=== PATIENT | male | born 1975 | race Caucasian/White ===

== ENCOUNTER 2018-05-28 12:24 | Emergency (ER) | payer MEDICAID ==
[~2018-05-28] VITALS: Ht 172.7 cm; Wt 58.0 kg
[2018-05-28 12:54] VITALS: BP 120/82
[2018-05-28] MEDS ORDERED: CYCL-1 PO (14:44)
[2018-05-28] MEDS ORDERED: IBUP-1984 PO (14:44)
== END 2018-05-28 14:48 | disposition home or self-care (01) ==
LOC: ER 12:25
DX: S20.219A Contusion of unspecified front wall of thorax, initial encounter (principal); S00.01XA Abrasion of scalp, initial encounter; S09.90XA Unspecified injury of head, initial encounter; I10 Essential (primary) hypertension; F12.90 Cannabis use, unspecified, uncomplicated; Z98.890 Other specified postprocedural states; Z88.1 Allergy status to other antibiotic agents; V19.9XXA Pedal cyclist (driver) (passenger) injured in unspecified traffic accident, initial encounter; Y93.55 Activity, bike riding; Y92.413 State road as the place of occurrence of the external cause; Y99.9 Unspecified external cause status
CPT/HCPCS: 71046; 99284

== ENCOUNTER 2018-07-28 14:00 | Emergency (ER) | payer MEDICAID ==
[~2018-07-28] VITALS: Ht 172.7 cm; Wt 70.1 kg
[~2018-07-28 14:00] MED LIST: CYCL-1 PO
[2018-07-28 14:14] VITALS: BP 136/84
--- NOTE | 2018-07-28 14:39 | NUR ---
PATIENT WITH SCATTERED CUTS TO HANDS AND SMALL WOUNDS IN VARIUOS STAGES OF HEALING, RIGHT THUMB REDDENED
[2018-07-28] MEDS ORDERED: LIDOcaine 1.5% w/epinephrine 1:200,000 5ml ampul IJ ONE (14:40)
[2018-07-28] MEDS ORDERED: BACDS PO (14:41)
[2018-07-28] MEDS ORDERED: CEPH500C5 PO (14:41)
[2018-07-28] MEDS: LIDOcaine 1% w/epiNEPHrine 1:200,000 30ml vial SQ ONE (15:07)
[2018-07-28] MEDS: cephalexin 250mg capsule PO ONE (15:17)
[2018-07-28] MEDS: sulfamethoxazole/trimethoprim DS (800/160mg) tablet PO ONE (15:17)
== END 2018-07-28 15:24 | disposition home or self-care (01) ==
LOC: ER 14:01
DX: L03.011 Cellulitis of right finger (principal); I10 Essential (primary) hypertension; F17.210 Nicotine dependence, cigarettes, uncomplicated; F12.10 Cannabis abuse, uncomplicated; F41.0 Panic disorder [episodic paroxysmal anxiety]; Z88.8 Allergy status to other drugs, medicaments and biological substances; Z79.899 Other long term (current) drug therapy
CPT/HCPCS: 10060; 99283; J3490

== ENCOUNTER 2019-02-01 11:58 | Emergency (ER) | payer MEDICAID ==
[~2019-02-01] VITALS: Ht 172.7 cm; Wt 75.0 kg
[~2019-02-01 11:58] MED LIST changes: +CEPH500C5 PO
[2019-02-01 12:07] VITALS: BP 107/64
[2019-02-01] MEDS ORDERED: AMOX500C2 PO (12:43)
[2019-02-01] MEDS ORDERED: CIPR7.5D LEFT EAR (12:43)
== END 2019-02-01 13:03 | disposition home or self-care (01) ==
LOC: ER 11:58
DX: H60.92 Unspecified otitis externa, left ear (principal); I10 Essential (primary) hypertension; F41.0 Panic disorder [episodic paroxysmal anxiety]; F12.90 Cannabis use, unspecified, uncomplicated; Z98.890 Other specified postprocedural states; Z86.14 Personal history of Methicillin resistant Staphylococcus aureus infection; Z60.2 Problems related to living alone; Z88.1 Allergy status to other antibiotic agents; Z88.5 Allergy status to narcotic agent; Z79.899 Other long term (current) drug therapy
CPT/HCPCS: 99283

== ENCOUNTER 2019-07-28 12:36 | Emergency (ER) | payer MEDICAID ==
[~2019-07-28] VITALS: Ht 172.7 cm; Wt 80.0 kg
[~2019-07-28 12:36] MED LIST changes: +AMOX-419 PO; +AZI25OT PO; -CEPH500C5 PO; -CYCL-1 PO; +LACT1CAP26 PO; +MAGN400C PO; +MULT-955 PO; +PANT40TA4 PO; +POTA10TA36 PO; +PRAV20TA4 PO; +TRAZ-219 PO; +folic acid tablet PO; +thiamine tablet PO
[2019-07-28] MEDS ORDERED: normal saline 1000ML IV soln IVB ONE (13:05)
[2019-07-28] MEDS ORDERED: ondansetron/PF 4mg/2ml inj IV ONE (13:05)
[2019-07-28] MEDS ORDERED: ketorolac tromethamine 15mg/ml inj. IV ONE (13:05)
[2019-07-28] MEDS ORDERED: haloperidol lactate 5mg/ml inj IM ONE (13:05)
[2019-07-28 13:24] LABS: BASOPHILS % (AUTO) 0.4 % (0-1); EOSINOPHILS # (AUTO) 0.1 X10'3 (0-0.9); EOSINOPHILS % (AUTO) 1.5 % (0-6); HEMATOCRIT 40.8 % (42.0-52.0); HEMOGLOBIN 14.1 g/dl (14.0-17.9); LYMPHOCYTES # (AUTO) 1.8 X10'3 (1.1-4.8); LYMPHOCYTES % (AUTO) 23.3 % (21-51); MEAN CORPUSCULAR HEMOGLOBIN 32.6 PG (27.0-31.0); MEAN CORPUSCULAR HGB CONC 34.5 g/dL (33.0-36.5); MEAN CORPUSCULAR VOLUME 94.3 FL (78-98); MEAN PLATELET VOLUME 7.7 FL (7.4-10.4); MONOCYTES # (AUTO) 0.5 X10'3 (0-0.9); MONOCYTES % (AUTO) 6.3 % (2-12); NEUTROPHILS # (AUTO) 5.3 X10'3 (1.8-7.7); NEUTROPHILS % (AUTO) 68.5 % (42-75); PLATELET COUNT 113 X10'3 (140-440); RED BLOOD COUNT 4.33 X10'6 (4.70-6.10); RED CELL DISTRIBUTION WIDTH 15.4 % (11.5-14.5); WHITE BLOOD COUNT 7.7 X10'3 (4.5-11.0)
[2019-07-28 13:37] LABS: ALANINE AMINOTRANSFERASE 26 U/L (12-78); ALBUMIN 2.7 G/DL (3.4-5.0); ALBUMIN/GLOBULIN RATIO 0.9 (1.1-1.5); ALKALINE PHOSPHATASE 58 IU/L (46-116); ANION GAP 12 (8-16); ASPARTATE AMINO TRANSFERASE 39 U/L (10-37); BILIRUBIN,TOTAL 0.5 MG/DL (0.1-1.0); BLOOD UREA NITROGEN 20 MG/DL (7-18); BUN/CREATININE RATIO 25.3 (5.4-32.0); CALCIUM 7.5 MG/DL (8.5-10.1); CHLORIDE 105 MMOL/L (99-107); CREATININE 0.79 MG/DL (0.60-1.10); GLUCOSE 82 MG/DL (70-104); LIPASE 114 U/L (73-393); SODIUM 142 MMOL/L (135-145); TOTAL CARBON DIOXIDE 25.1 MMOL/L (24-32); TOTAL PROTEIN 5.7 G/DL (6.4-8.2); eGFR > 90 ML/MIN
[2019-07-28 13:40] VITALS: BP 119/78
== END 2019-07-28 14:44 | disposition home or self-care (01) ==
LOC: ER 12:37
DX: R53.1 Weakness (principal); R42 Dizziness and giddiness; R05 Cough; R50.9 Fever, unspecified; I10 Essential (primary) hypertension; F41.9 Anxiety disorder, unspecified; R10.84 Generalized abdominal pain; F17.200 Nicotine dependence, unspecified, uncomplicated; F10.99 Alcohol use, unspecified with unspecified alcohol-induced disorder; F12.90 Cannabis use, unspecified, uncomplicated; F15.90 Other stimulant use, unspecified, uncomplicated; Z86.19 Personal history of other infectious and parasitic diseases; Z60.2 Problems related to living alone; Z98.890 Other specified postprocedural states; Z88.5 Allergy status to narcotic agent; Z88.1 Allergy status to other antibiotic agents; Z79.899 Other long term (current) drug therapy; Y90.9 Presence of alcohol in blood, level not specified
CPT/HCPCS: 36415; 80053; 83690; 85025; 96361; 96372; 96374; 96375; 99283; J1630; J1885; J2405; J7030

== ENCOUNTER 2019-08-29 07:57 | Emergency (ER) | payer MEDICAID ==
[~2019-08-29] VITALS: Ht 172.7 cm; Wt 75.0 kg
[~2019-08-29 07:57] MED LIST changes: -AMOX-419 PO; -TRAZ-219 PO; +TRAZ-256 PO
[2019-08-29 08:03] VITALS: BP 115/73
[2019-08-29] MEDS ORDERED: CIPR10DR EACH EAR (09:03)
== END 2019-08-29 09:21 | disposition home or self-care (01) ==
LOC: ER 07:58
DX: H60.93 Unspecified otitis externa, bilateral (principal); F12.90 Cannabis use, unspecified, uncomplicated; F15.90 Other stimulant use, unspecified, uncomplicated; I10 Essential (primary) hypertension; F41.9 Anxiety disorder, unspecified; Z86.14 Personal history of Methicillin resistant Staphylococcus aureus infection; Z98.890 Other specified postprocedural states; Z88.1 Allergy status to other antibiotic agents; Z88.5 Allergy status to narcotic agent; Z79.2 Long term (current) use of antibiotics
CPT/HCPCS: 99283

== ENCOUNTER 2020-02-01 08:15 | Emergency (ER) | payer MEDICAID ==
[~2020-02-01] VITALS: Ht 172.7 cm; Wt 80.0 kg
[2020-02-01 08:30] VITALS: BP 137/85
== END 2020-02-01 08:45 | disposition home or self-care (01) ==
LOC: ER 08:15
DX: Z00.00 Encounter for general adult medical examination without abnormal findings (principal); I10 Essential (primary) hypertension; F41.9 Anxiety disorder, unspecified; F12.90 Cannabis use, unspecified, uncomplicated; F15.90 Other stimulant use, unspecified, uncomplicated; Z86.14 Personal history of Methicillin resistant Staphylococcus aureus infection; Z72.89 Other problems related to lifestyle; Z98.890 Other specified postprocedural states; Z60.2 Problems related to living alone; Z88.5 Allergy status to narcotic agent; Z88.8 Allergy status to other drugs, medicaments and biological substances; Z79.899 Other long term (current) drug therapy
CPT/HCPCS: 99281

== ENCOUNTER 2020-07-08 15:17 | Emergency (ER) | payer MEDICAID ==
[~2020-07-08] VITALS: Ht 172.7 cm; Wt 77.3 kg
[~2020-07-08 15:17] MED LIST changes: -PANT40TA4 PO; +PANT40TA54 PO
[2020-07-08] MEDS ORDERED: dexamethasone 4mg tablet PO ONE (15:40)
[2020-07-08] MEDS ORDERED: PRED20TA PO (16:12)
[2020-07-08 16:49] LABS: BASOPHILS % (AUTO) 0.3 % (0-1); EOSINOPHILS % (AUTO) 0.8 % (0-6); HEMATOCRIT 41.3 % (42.0-52.0); HEMOGLOBIN 14.6 g/dl (14.0-17.9); LYMPHOCYTES # (AUTO) 1.2 X10'3 (1.1-4.8); LYMPHOCYTES % (AUTO) 20.4 % (21-51); MEAN CORPUSCULAR HEMOGLOBIN 31.7 PG (27.0-31.0); MEAN CORPUSCULAR HGB CONC 35.3 g/dL (33.0-36.5); MEAN CORPUSCULAR VOLUME 89.7 FL (78-98); MEAN PLATELET VOLUME 7.3 FL (7.4-10.4); MONOCYTES # (AUTO) 0.6 X10'3 (0-0.9); NEUTROPHILS % (AUTO) 68.5 % (42-75); PLATELET COUNT 168 X10'3 (140-440); RED CELL DISTRIBUTION WIDTH 12.6 % (11.5-14.5); WHITE BLOOD COUNT 5.8 X10'3 (4.5-11.0)
[2020-07-08 16:58] LABS: ALANINE AMINOTRANSFERASE 27 U/L (12-78); ALBUMIN 3.5 G/DL (3.4-5.0); ALBUMIN/GLOBULIN RATIO 0.9 (1.1-1.5); ALKALINE PHOSPHATASE 65 IU/L (46-116); ANION GAP 9 (8-16); ASPARTATE AMINO TRANSFERASE 24 U/L (10-37); BILIRUBIN,TOTAL 0.5 MG/DL (0.1-1.0); BLOOD UREA NITROGEN 16 MG/DL (7-18); BUN/CREATININE RATIO 16.2 (5.4-32.0); CALCIUM 8.6 MG/DL (8.5-10.1); CHLORIDE 99 MMOL/L (99-107); CREATININE 0.99 MG/DL (0.60-1.10); GLUCOSE 89 MG/DL (70-104); SODIUM 134 MMOL/L (135-145); TOTAL CARBON DIOXIDE 26.4 MMOL/L (24-32); TOTAL PROTEIN 7.4 G/DL (6.4-8.2); eGFR 82 ML/MIN
== END 2020-07-08 17:27 | disposition home or self-care (01) ==
LOC: ER 15:17
DX: U07.1 COVID-19 (principal); I10 Essential (primary) hypertension; F41.9 Anxiety disorder, unspecified; F12.10 Cannabis abuse, uncomplicated; F15.10 Other stimulant abuse, uncomplicated; Z88.5 Allergy status to narcotic agent; Z88.1 Allergy status to other antibiotic agents; Z88.8 Allergy status to other drugs, medicaments and biological substances
CPT/HCPCS: 36415; 71045; 80053; 85025; 99284

== ENCOUNTER 2020-08-14 23:06 | Emergency (ER) | payer MEDICAID ==
[~2020-08-14] VITALS: Ht 172.7 cm; Wt 77.2 kg
[2020-08-14] MEDS ORDERED: LORazepam 1 MG tablet PO ONE (23:35)
[2020-08-14 23:59] VITALS: BP 136/92
== END 2020-08-14 23:55 | disposition home or self-care (01) ==
LOC: ER 23:07
DX: F41.9 Anxiety disorder, unspecified (principal); I10 Essential (primary) hypertension; F12.90 Cannabis use, unspecified, uncomplicated; Z86.14 Personal history of Methicillin resistant Staphylococcus aureus infection; Z60.9 Problem related to social environment, unspecified; Z72.89 Other problems related to lifestyle; Z88.1 Allergy status to other antibiotic agents; Z88.6 Allergy status to analgesic agent; Z79.2 Long term (current) use of antibiotics; Z79.899 Other long term (current) drug therapy
CPT/HCPCS: 99283

== ENCOUNTER 2020-09-05 13:23 | Emergency (ER) | payer MEDICAID ==
[~2020-09-05] VITALS: Ht 172.7 cm; Wt 73.7 kg
[2020-09-05 13:51] VITALS: BP 105/79
[2020-09-05] MEDS ORDERED: chlordiazePOXIDE 25mg capsule PO ONE (16:00)
== END 2020-09-05 16:27 | disposition home or self-care (01) ==
LOC: ER 13:23
DX: F41.9 Anxiety disorder, unspecified (principal); I10 Essential (primary) hypertension; F17.200 Nicotine dependence, unspecified, uncomplicated; F12.90 Cannabis use, unspecified, uncomplicated; Z86.14 Personal history of Methicillin resistant Staphylococcus aureus infection; Z72.89 Other problems related to lifestyle; Z88.1 Allergy status to other antibiotic agents; Z88.8 Allergy status to other drugs, medicaments and biological substances; Z79.899 Other long term (current) drug therapy
CPT/HCPCS: 99283

== ENCOUNTER 2020-12-19 11:37 | Emergency (ER) | payer MEDICAID ==
[~2020-12-19] VITALS: Ht 172.7 cm; Wt 65.0 kg
[2020-12-19 11:44] VITALS: BP 118/73
[2020-12-19] MEDS ORDERED: CEPH250T PO (11:58)
[2020-12-19] MEDS ORDERED: SULF1TAB45 PO (11:58)
== END 2020-12-19 12:08 | disposition home or self-care (01) ==
LOC: ER 11:37
DX: S61.211A Laceration without foreign body of left index finger without damage to nail, initial encounter (principal); L08.9 Local infection of the skin and subcutaneous tissue, unspecified; I10 Essential (primary) hypertension; F17.200 Nicotine dependence, unspecified, uncomplicated; F12.90 Cannabis use, unspecified, uncomplicated; F15.90 Other stimulant use, unspecified, uncomplicated; Z98.890 Other specified postprocedural states; Z86.14 Personal history of Methicillin resistant Staphylococcus aureus infection; Z88.1 Allergy status to other antibiotic agents; Z88.6 Allergy status to analgesic agent; Z79.2 Long term (current) use of antibiotics; Z79.899 Other long term (current) drug therapy; W26.8XXA Contact with other sharp object(s), not elsewhere classified, initial encounter; Y93.89 Activity, other specified; Y92.89 Other specified places as the place of occurrence of the external cause; Y99.8 Other external cause status
CPT/HCPCS: 99283

== ENCOUNTER 2021-02-08 21:59 | Emergency (ER) | payer MEDICAID ==
[~2021-02-08] VITALS: Ht 172.7 cm; Wt 68.2 kg
[2021-02-08 22:09] VITALS: BP 123/89
[2021-02-08] MEDS ORDERED: TETanus/Pertussis (Acell)/Diphther VAC/PF (Tdap-Adult) 0.5ml syringe IMVAC ONE (22:35)
[2021-02-08] MEDS ORDERED: acetaminophen 325mg tablet PO ONE (23:05)
[2021-02-08] MEDS ORDERED: ibuprofen 200mg tablet PO ONE (23:05)
[2021-02-08] MEDS ORDERED: CEPH250T PO (23:13)
[2021-02-08] MEDS ORDERED: IBUP-1984 PO (23:15)
== END 2021-02-08 23:36 | disposition home or self-care (01) ==
LOC: ER 22:00
DX: S91.311A Laceration without foreign body, right foot, initial encounter (principal); I10 Essential (primary) hypertension; F41.9 Anxiety disorder, unspecified; F12.90 Cannabis use, unspecified, uncomplicated; F15.90 Other stimulant use, unspecified, uncomplicated; Z20.3 Contact with and (suspected) exposure to rabies; Z86.14 Personal history of Methicillin resistant Staphylococcus aureus infection; Z98.890 Other specified postprocedural states; Z72.89 Other problems related to lifestyle; Z60.2 Problems related to living alone; Z88.5 Allergy status to narcotic agent; Z88.8 Allergy status to other drugs, medicaments and biological substances; Z79.2 Long term (current) use of antibiotics; Z79.899 Other long term (current) drug therapy; W22.8XXA Striking against or struck by other objects, initial encounter; Y93.89 Activity, other specified; Y92.89 Other specified places as the place of occurrence of the external cause; Y99.8 Other external cause status
CPT/HCPCS: 90471; 90715; 99283

== ENCOUNTER 2021-02-10 15:36 | Emergency (ER) | payer MEDICAID ==
[~2021-02-10] VITALS: Ht 172.7 cm; Wt 62.0 kg
[~2021-02-10 15:36] MED LIST changes: +CEPH250T PO; +IBUP-1984 PO
[2021-02-10 16:18] VITALS: BP 107/60
== END 2021-02-10 17:10 | disposition home or self-care (01) ==
LOC: ER 15:38
DX: S91.311D Laceration without foreign body, right foot, subsequent encounter (principal); I10 Essential (primary) hypertension; F41.9 Anxiety disorder, unspecified; F12.10 Cannabis abuse, uncomplicated; F15.10 Other stimulant abuse, uncomplicated; Z48.00 Encounter for change or removal of nonsurgical wound dressing; Z88.1 Allergy status to other antibiotic agents; Z88.5 Allergy status to narcotic agent; W26.0XXD Contact with knife, subsequent encounter
CPT/HCPCS: 29515; 99283

== ENCOUNTER 2021-04-12 12:20 | Emergency (ER) | payer MEDICAID ==
[~2021-04-12] VITALS: Ht 172.7 cm; Wt 62.4 kg
[~2021-04-12 12:20] MED LIST changes: -CEPH250T PO; -IBUP-1984 PO
[2021-04-12 12:24] VITALS: BP 117/79
[2021-04-12] MEDS ORDERED: LORazepam 1 MG tablet PO ONE (13:10)
[2021-04-12] MEDS ORDERED: pantoprazole 40mg Tablet.DR PO ONE (13:30)
== END 2021-04-12 13:45 | disposition home or self-care (01) ==
LOC: ER 12:20
DX: F41.9 Anxiety disorder, unspecified (principal); F12.10 Cannabis abuse, uncomplicated; F15.10 Other stimulant abuse, uncomplicated; I10 Essential (primary) hypertension; Z88.1 Allergy status to other antibiotic agents; Z88.5 Allergy status to narcotic agent; Z79.899 Other long term (current) drug therapy
CPT/HCPCS: 99283

== ENCOUNTER 2021-04-15 14:59 | Emergency (ER) | payer MEDICAID ==
[~2021-04-15] VITALS: Ht 172.7 cm; Wt 65.0 kg
[2021-04-15] MEDS ORDERED: MUPI22OI30 TOP (16:02)
[2021-04-15 16:16] VITALS: BP 128/72
== END 2021-04-15 16:19 | disposition home or self-care (01) ==
LOC: ER 15:00
DX: L73.9 Follicular disorder, unspecified (principal); I10 Essential (primary) hypertension; F12.90 Cannabis use, unspecified, uncomplicated; F15.90 Other stimulant use, unspecified, uncomplicated; Z72.89 Other problems related to lifestyle; Z86.19 Personal history of other infectious and parasitic diseases; Z88.6 Allergy status to analgesic agent; Z88.1 Allergy status to other antibiotic agents; Z79.2 Long term (current) use of antibiotics; Z79.899 Other long term (current) drug therapy
CPT/HCPCS: 99283

== ENCOUNTER 2021-04-17 13:24 | Emergency (ER) | payer MEDICAID ==
[~2021-04-17] VITALS: Ht 172.7 cm; Wt 64.0 kg
[~2021-04-17 13:24] MED LIST changes: +MUPI22OI30 TOP
[2021-04-17 14:20] VITALS: BP 126/73
[2021-04-17] MEDS ORDERED: NICO-687 TOP (16:11)
[2021-04-17] MEDS ORDERED: HYDR-3686 PO (16:11)
== END 2021-04-17 16:28 | disposition home or self-care (01) ==
LOC: ER 13:24
DX: F19.10 Other psychoactive substance abuse, uncomplicated (principal); I10 Essential (primary) hypertension; F41.9 Anxiety disorder, unspecified; F12.90 Cannabis use, unspecified, uncomplicated; F15.90 Other stimulant use, unspecified, uncomplicated; Z86.14 Personal history of Methicillin resistant Staphylococcus aureus infection; Z98.890 Other specified postprocedural states; Z72.89 Other problems related to lifestyle; Z60.2 Problems related to living alone; Z88.1 Allergy status to other antibiotic agents; Z88.5 Allergy status to narcotic agent; Z79.2 Long term (current) use of antibiotics; Z79.899 Other long term (current) drug therapy
CPT/HCPCS: 99283

== ENCOUNTER 2021-05-04 16:12 | Emergency (ER) | payer MEDICAID ==
[~2021-05-04] VITALS: Ht 172.7 cm; Wt 65.9 kg
[~2021-05-04 16:12] MED LIST changes: -MUPI22OI30 TOP; +NICO-687 TOP
[2021-05-04 17:08] VITALS: BP 140/74
== END 2021-05-04 18:12 | disposition home or self-care (01) ==
LOC: ER 16:12
DX: U07.1 COVID-19 (principal); R05.9 Cough, unspecified; R06.02 Shortness of breath; I10 Essential (primary) hypertension; F41.9 Anxiety disorder, unspecified; F12.90 Cannabis use, unspecified, uncomplicated; F15.90 Other stimulant use, unspecified, uncomplicated; Z86.14 Personal history of Methicillin resistant Staphylococcus aureus infection; Z98.890 Other specified postprocedural states; Z72.89 Other problems related to lifestyle; Z60.2 Problems related to living alone; Z88.5 Allergy status to narcotic agent; Z88.1 Allergy status to other antibiotic agents; Z79.2 Long term (current) use of antibiotics; Z79.899 Other long term (current) drug therapy
CPT/HCPCS: 36415; 99283; U0003; U0005

== ENCOUNTER 2021-07-31 14:23 | Emergency (ER) | payer MEDICAID ==
[~2021-07-31] VITALS: Ht 172.7 cm; Wt 68.2 kg
[~2021-07-31 14:23] MED LIST changes: -NICO-687 TOP; -POTA10TA36 PO; +POTA10TA37 PO
[2021-07-31 14:53] VITALS: BP 116/72
== END 2021-07-31 15:31 | disposition home or self-care (01) ==
LOC: ER 14:23
DX: Z02.89 Encounter for other administrative examinations (principal); I10 Essential (primary) hypertension; F41.9 Anxiety disorder, unspecified; F12.90 Cannabis use, unspecified, uncomplicated; F15.90 Other stimulant use, unspecified, uncomplicated; Z86.19 Personal history of other infectious and parasitic diseases; Z86.14 Personal history of Methicillin resistant Staphylococcus aureus infection; Z72.89 Other problems related to lifestyle; Z88.1 Allergy status to other antibiotic agents; Z88.5 Allergy status to narcotic agent; Z79.2 Long term (current) use of antibiotics; Z79.899 Other long term (current) drug therapy; Y90.9 Presence of alcohol in blood, level not specified
CPT/HCPCS: 29540; 99281; 99283

== ENCOUNTER 2021-08-07 10:26 | Emergency (ER) | payer MEDICAID ==
[~2021-08-07] VITALS: Ht 172.7 cm; Wt 68.2 kg
[2021-08-07 10:27] VITALS: BP 117/60
[2021-08-07] MEDS ORDERED: LORazepam 1 MG tablet PO ONE (11:30)
[2021-08-07] MEDS ORDERED: NICO-687 TOP (11:32)
== END 2021-08-07 12:08 | disposition home or self-care (01) ==
LOC: ER 10:27
DX: Z02.89 Encounter for other administrative examinations (principal); F12.90 Cannabis use, unspecified, uncomplicated; F15.90 Other stimulant use, unspecified, uncomplicated; I10 Essential (primary) hypertension; F41.9 Anxiety disorder, unspecified; Z88.1 Allergy status to other antibiotic agents; Z88.5 Allergy status to narcotic agent; Z79.899 Other long term (current) drug therapy; Z79.2 Long term (current) use of antibiotics
CPT/HCPCS: 99283

== ENCOUNTER 2021-12-02 10:30 | Emergency (ER) | payer MEDICAID ==
[~2021-12-02] VITALS: Ht 172.7 cm; Wt 70.0 kg
[2021-12-02] MEDS ORDERED: HYDROcodone/acetaminophen 10/325mg tab PO ONE (10:55)
[2021-12-02] MEDS ORDERED: HYDR-3972 PO (12:13)
[2021-12-02 12:30] VITALS: BP 124/78
== END 2021-12-02 12:42 | disposition home or self-care (01) ==
LOC: ER 10:31
DX: S93.402A Sprain of unspecified ligament of left ankle, initial encounter (principal); M25.571 Pain in right ankle and joints of right foot; I10 Essential (primary) hypertension; F41.9 Anxiety disorder, unspecified; F12.90 Cannabis use, unspecified, uncomplicated; F15.90 Other stimulant use, unspecified, uncomplicated; Z86.14 Personal history of Methicillin resistant Staphylococcus aureus infection; Z98.890 Other specified postprocedural states; Z72.89 Other problems related to lifestyle; Z60.2 Problems related to living alone; Z88.5 Allergy status to narcotic agent; Z88.8 Allergy status to other drugs, medicaments and biological substances; Z79.2 Long term (current) use of antibiotics; Z79.899 Other long term (current) drug therapy; X50.1XXA Overexertion from prolonged static or awkward postures, initial encounter; Y93.89 Activity, other specified; Y92.89 Other specified places as the place of occurrence of the external cause; Y99.8 Other external cause status
CPT/HCPCS: 73610; 99284

== ENCOUNTER 2021-12-07 07:49 | Emergency (ER) | payer MEDICAID ==
[~2021-12-07] VITALS: Ht 172.7 cm; Wt 62.7 kg
[~2021-12-07 07:49] MED LIST changes: +HYDR-3972 PO
[2021-12-07] MEDS ORDERED: naproxen sodium 220mg tablet PO STA ×2 (08:51→08:55)
[2021-12-07] MEDS ORDERED: gabapentin 300mg capsule PO ONE (08:55)
[2021-12-07] MEDS ORDERED: gabapentin 400mg capsule PO SCH (08:55)
[2021-12-07] MEDS ORDERED: oxyCODONE/APAP 5-325mg tablet PO ONE (08:55)
--- NOTE | 2021-12-07 08:55 | NUR ---
Patient given water and states the pain is "getting to be more than my brain can handle."
--- NOTE | 2021-12-07 09:15 | NUR ---
Patient given oral pain medication; continually states, "It's not going to work." Patient requests food.
--- NOTE | 2021-12-07 09:20 | NUR ---
Patient given sandwich.
--- NOTE | 2021-12-07 09:27 | NUR ---
Lights dimmed and curtain drawn per patient request.
[2021-12-07 09:33] LABS: URINE AMPHETAMINE SCREEN NEGATIVE (Neg); URINE BARBITUATE SCREEN NEGATIVE (Neg); URINE BENZODIAZEPINES SCREEN NEGATIVE (Neg); URINE CANNABINOID SCREEN POSITIVE (Neg); URINE COCAINE SCREEN NEGATIVE (Neg); URINE METHADONE SCREEN NEGATIVE (Neg); URINE OPIATE SCREEN NEGATIVE (Neg); URINE PHENCYCLIDINE SCREEN NEGATIVE (Neg)
[2021-12-07] MEDS ORDERED: NAPR-56 PO ×2 (10:48)
--- NOTE | 2021-12-07 10:56 | NUR ---
customer services manager will car pick up driver patient's prescription and bring to ER at noon today.
--- NOTE | 2021-12-07 12:00 | NUR ---
Patient resting quietly in bed; appears to be sleeping.
--- NOTE | 2021-12-07 13:26 | NUR ---
Patient resting in bed; states pain is starting to worsen.
--- NOTE | 2021-12-07 13:31 | NUR ---
Verito from [employer] attempting to slate picker prescriptions for patient; prescriptions not ready yet.
[2021-12-07 14:28] VITALS: BP 137/65
== END 2021-12-07 14:34 | disposition home or self-care (01) ==
LOC: ER 07:50
DX: G89.29 Other chronic pain (principal); M25.571 Pain in right ankle and joints of right foot; I10 Essential (primary) hypertension; F12.10 Cannabis abuse, uncomplicated; F15.10 Other stimulant abuse, uncomplicated; F41.9 Anxiety disorder, unspecified; Z88.0 Allergy status to penicillin; Z88.5 Allergy status to narcotic agent; Z88.1 Allergy status to other antibiotic agents; Z79.899 Other long term (current) drug therapy
CPT/HCPCS: 80305; 99284

== ENCOUNTER 2021-12-09 21:57 | Inpatient (IN) | payer MEDICAID ==
[~2021-12-09] VITALS: Ht 172.7 cm; Wt 63.6 kg
[~2021-12-09 21:57] MED LIST changes: -HYDR-3972 PO; +NAPR-56 PO
[2021-12-09 22:24] LABS: BASOPHILS % (AUTO) 0.1 % (0-1); EOSINOPHILS # (AUTO) 0.1 X10'3 (0-0.9); EOSINOPHILS % (AUTO) 0.9 % (0-6); HEMATOCRIT 31.3 % (42.0-52.0); HEMOGLOBIN 10.4 g/dl (14.0-17.9); LYMPHOCYTES # (AUTO) 0.2 X10'3 (1.1-4.8); LYMPHOCYTES % (AUTO) 1.6 % (21-51); MEAN CORPUSCULAR HEMOGLOBIN 30.4 PG (27.0-31.0); MEAN CORPUSCULAR HGB CONC 33.2 g/dL (33.0-36.5); MEAN CORPUSCULAR VOLUME 91.3 FL (78-98); MEAN PLATELET VOLUME 6.6 FL (7.4-10.4); MONOCYTES # (AUTO) 0.4 X10'3 (0-0.9); MONOCYTES % (AUTO) 2.9 % (2-12); NEUTROPHILS # (AUTO) 13.3 X10'3 (1.8-7.7); NEUTROPHILS % (AUTO) 94.5 % (42-75); PLATELET COUNT 278 X10'3 (140-440); RED BLOOD COUNT 3.43 X10'6 (4.70-6.10); RED CELL DISTRIBUTION WIDTH 15.3 % (11.5-14.5)
[2021-12-09 22:47] LABS: ALANINE AMINOTRANSFERASE 28 U/L (12-78); ALBUMIN 1.3 G/DL (3.4-5.0); ALBUMIN/GLOBULIN RATIO 0.3 (1.1-1.5); ALKALINE PHOSPHATASE 74 IU/L (46-116); ANION GAP 7 (8-16); ASPARTATE AMINO TRANSFERASE 24 U/L (10-37); BILIRUBIN,TOTAL 0.4 MG/DL (0.1-1.0); BLOOD UREA NITROGEN 18 MG/DL (7-18); BUN/CREATININE RATIO 14.4 (5.4-32.0); CHLORIDE 98 MMOL/L (99-107); CREATININE 1.25 MG/DL (0.60-1.10); GLUCOSE 261 MG/DL (70-104); SODIUM 136 MMOL/L (135-145); TOTAL CARBON DIOXIDE 31.4 MMOL/L (24-32); TOTAL PROTEIN 5.3 G/DL (6.4-8.2); eGFR 62 ML/MIN
[2021-12-09 22:53] LABS: POTASSIUM 2.8 MMOL/L (3.5-5.1)
[2021-12-09 23:21] LABS: TOTAL CELLS COUNTED 100
[2021-12-09 23:22] LABS: PLATELET ESTIMATE NORMAL
[2021-12-10] VITALS (20 sets, daily range): BP systolic 105–144; BP diastolic 53–88
[2021-12-10] MEDS ORDERED: potassium Cl 20 mEq SR tablet PO STA (01:07)
[2021-12-10] MEDS ORDERED: cefepime 1GM/NS ADD-VANTAGE 100 ML IV ONE (01:10)
[2021-12-10] MEDS ORDERED: vancomycin/NS 1 GM ADD-VANTAGE 250 ML IV ONE (01:10)
[2021-12-10 01:48] LABS: APTT 27 SECONDS (22-32)
[2021-12-10] MEDS ORDERED: pantoprazole 40MG/NS 100ML BAG 100 ML IV STA (01:55)
[2021-12-10] MEDS ORDERED: normal saline 1000ml 1,000 ML IV ONE ×3 (02:00→03:10)
[2021-12-10] MEDS ORDERED: magnesium 2GM in 50ml NS 50 ML IV ONE (02:10)
[2021-12-10] MEDS ORDERED: fentaNYL/PF 50MCG/1 ML 2ML syringe IV ONE (02:35)
[2021-12-10] MEDS ORDERED: clindamycin 600mg/D5W 50ml 50 ML IV ONE (03:05)
--- NOTE | 2021-12-10 03:34 | NUR ---
DR DAVIDSON WAS IN THE ROOM TO SPEAK WITH PT FOR ADMISSION
[2021-12-10] MEDS ORDERED: HYDROmorphone 1 mg/ml syringe IV ONE (03:40)
[2021-12-10] MEDS ORDERED: HYDROmorphone 1 mg/ml syringe IM ONE (04:15)
[2021-12-10 04:30] LABS: URINE AMPHETAMINE SCREEN NEGATIVE (Neg); URINE BARBITUATE SCREEN NEGATIVE (Neg); URINE BENZODIAZEPINES SCREEN NEGATIVE (Neg); URINE CANNABINOID SCREEN POSITIVE (Neg); URINE COCAINE SCREEN NEGATIVE (Neg); URINE METHADONE SCREEN NEGATIVE (Neg); URINE OPIATE SCREEN NEGATIVE (Neg); URINE PHENCYCLIDINE SCREEN NEGATIVE (Neg)
[2021-12-10] MEDS: normal saline 1000ml 1,000 ML IV SCH ×2 (04:35→20:08)
[2021-12-10] MEDS ORDERED: magnesium hydroxide 30ml (MOM) UD suspension PO PRN (04:35)
[2021-12-10] MEDS ORDERED: magnesium 4gm in 100ml NS 100 ML IV PRN (04:35)
[2021-12-10] MEDS ORDERED: ondansetron/PF 4mg/2ml inj IV PRN ×2 (04:35→13:35)
[2021-12-10] MEDS ORDERED: mag hydrox/Alum hydrox/simeth 30ml oral suspension PO PRN (04:35)
[2021-12-10] MEDS ORDERED: magnesium 2GM in 50ml NS 50 ML IV PRN (04:35)
[2021-12-10] MEDS ORDERED: POTASSIUM BICARB 20meq eff tab 20 MEQ TABLET.EFF PO PRN (04:35)
[2021-12-10] MEDS ORDERED: naloxone 0.4 mg/ml inj IV PRN (04:40)
--- NOTE | 2021-12-10 06:30 | NUR ---
FIRST CONTACT WITH PT, FOUND SUPINE IN BED. PT YELLING OUT, STATING HE NEEDS HIS MEDS STARTED, REFERRING TO POLLS OR SURVEYS INTERVIEWER PUMP. REPORTS PAIN IN RIGHT FOOT, RIGHT LUNG AND RIGHT SIDE. PT REQUESTING WATER AND A URINAL, BOTH PROVIDED. VSS.
[2021-12-10] MEDS: HYDROmorph/NS 0.2 mg/ml PCA 100 ML IV SCH ×8 (07:00→23:00)
--- NOTE | 2021-12-10 07:00 | NUR ---
PHARMACY CALLED TO REQUEST BRASS BOBBIN WINDER BAG MADE. ORTHO/NEURO CALLED REGARDING BRASS BOBBIN WINDER PUMP INSTRUCTIONS, THEY WILL FAX INSTRUCTIONS DOWN.
--- NOTE | 2021-12-10 07:45 | NUR ---
PULL OVER MACHINE OPERATOR DILAUDED BAG DELIVERED FROM PHARMACY. TUBING OBTAINED FROM ICU, INSTRUCTIONS FAXED FROM ORTHO/NEURO.
[2021-12-10] MEDS: docusate sod 100mg capsule PO SCH ×2 (08:00→20:07)
[2021-12-10] MEDS: K and/or MAG REPLACEMENT MC SCH ×2 (08:00→20:00)
[2021-12-10] MEDS: clindamycin 600mg/D5W 50ml 50 ML IV SCH ×3 (08:30→20:07)
[2021-12-10 08:36] LABS: MAGNESIUM 1.8 MG/DL (1.5-2.4)
[2021-12-10 08:38] LABS: POTASSIUM 2.9 MMOL/L (3.5-5.1)
[2021-12-10] MEDS: potassium CL 10mEq/100ml bag 100 ML IV PRN ×2 (10:00→11:22)
--- NOTE | 2021-12-10 10:19 | NUR ---
DR. TAVARES AT BEDSIDE. PT REPORTS GRIEVANCE AND APPEALS SPECIALIST PUMP IS NOT ADEQUATE FOR PAIN CONTROL. WILL PAGE DR. ALMANZA.
[2021-12-10 10:25] LABS: C-REACTIVE PROTEIN 32.69 MG/DL (0.0-0.5)
--- NOTE | 2021-12-10 11:24 | NUR ---
DR. ALMANZA AT BEDSIDE.
[2021-12-10] MEDS: vancomycin/NS 1 GM ADD-VANTAGE 250 ML IV SCH (13:00)
[2021-12-10] MEDS: PCA waste documentation MC SCH (13:07)
[2021-12-10] MEDS ORDERED: vancomycin 1,000mg inj ONE (13:21)
[2021-12-10] MEDS ORDERED: BUPIVAcaine 0.5% inj/PF 0 ML ONE (13:22)
[2021-12-10] MEDS ORDERED: proCHLORperazine 10 MG/2 ml inj IV PRN (13:35)
[2021-12-10] MEDS ORDERED: ringers solution, lacted 1,000 ML IV SCH (13:35)
[2021-12-10] MEDS ORDERED: meperidine/PF 25mg/ml syringe IV PRN ×2 (13:35)
[2021-12-10] MEDS ORDERED: sevoflurane 250ml liquid IH ONE (13:40)
[2021-12-10] MEDS ORDERED: LIDOcaine 1%/PF 5ML 10 MG/ML VIAL ONE (13:40)
[2021-12-10] MEDS ORDERED: midazolam 1 mg/ML 2ml injection ONE (13:56)
[2021-12-10] MEDS ORDERED: fentaNYL/PF 50MCG/1 ML 2ML syringe ONE (13:56)
[2021-12-10] MEDS ORDERED: propofol inj 20 ML IV ONE ×2 (13:59→14:29)
[2021-12-10] MEDS ORDERED: fentaNYL /PF 50mcg/ml 5ml ampule ONE (14:09)
[2021-12-10] MEDS ORDERED: ondansetron/PF 4mg/2ml inj ONE (14:36)
--- NOTE | 2021-12-10 14:39 | NUR ---
Received from OR via BED, accompanied by Anesthesiologist DR WOLF and report given by Anesthesiologist. PT AWAKE, GROANING, MOANING, RIGHT FOOT/ANKLE W/DRSG AND WILLY WRAP COVERING W/S/S DRAINAGE. TOES PWD, DIE LAY OUT WORKER 3-4 SECONDS. Addendum: 12/10/21 at 1509 by Leanna Edwards RN Amended: Links added.
[2021-12-10] MEDS: meperidine/PF 25mg/ml syringe IV PRN ×4 (15:01→21:04)
--- NOTE | 2021-12-10 16:19 | NUR ---
Report called to receiving nurse. Transferred via BED, 1 BAG OF PERSONAL Belongings SENT W/PT TO ROOM 4020A, PT STARTED COMPLAINING ABOUT DILAUDID CADD IN ROUTE STATING IT WONT WORK, PT HAD ONLY GAVE HIMSELF ONE DOSE, EDUCATED PT ON USE OF CADD AND THAT HE NEEDED TO TRY IT, INFORMED RECEIVING NURSE WHO WAS AT PATIENTS BEDSIDE, SIDE RAILS UP, BLL. Special Issues communicated to receiving nurse. YES. Addendum: 12/10/21 at 1643 by Leanna Edwards RN Amended: Links added.
[2021-12-10] MEDS ORDERED: PRAZ1CAP5 PO (16:52)
[2021-12-10] MEDS ORDERED: FLUT16SP26 BOTHNARES (16:52)
[2021-12-10] MEDS ORDERED: IBUP-1985 PO (16:52)
[2021-12-10] MEDS ORDERED: TRAZ150T78 PO (16:52)
[2021-12-10] MEDS ORDERED: ESCI-8 PO (16:52)
[2021-12-10] MEDS ORDERED: NALT50TA PO (16:52)
[2021-12-10] MEDS ORDERED: BUPR300T86 PO (16:52)
[2021-12-10] MEDS ORDERED: LORA-268 PO (16:52)
[2021-12-10] MEDS ORDERED: ESOM40CA54 PO (16:52)
[2021-12-10] MEDS: piperacillin/tazo 3.375gm/50ml 50 ML IV SCH ×2 (16:54→22:06)
[2021-12-10] MEDS: acetaminophen 325mg tablet PO PRN (17:30)
[2021-12-10] MEDS: POTASSIUM BICARB 20meq eff tab 20 MEQ TABLET.EFF PO PRN (20:18)
[2021-12-11] MEDS: normal saline 1000ml 1,000 ML IV SCH ×3 (00:35→19:40)
[2021-12-11] MEDS: HYDROmorph/NS 0.2 mg/ml PCA 100 ML IV SCH ×12 (01:00→22:55)
[2021-12-11] MEDS: vancomycin/NS 1 GM ADD-VANTAGE 250 ML IV SCH ×2 (01:12→13:41)
[2021-12-11] MEDS: POTASSIUM BICARB 20meq eff tab 20 MEQ TABLET.EFF PO PRN ×3 (01:12→20:22)
[2021-12-11 02:00] VITALS: BP 108/62
[2021-12-11] MEDS: clindamycin 600mg/D5W 50ml 50 ML IV SCH ×2 (02:57→08:04)
[2021-12-11] MEDS: piperacillin/tazo 3.375gm/50ml 50 ML IV SCH (05:26)
[2021-12-11 06:00] VITALS: BP 117/62
[2021-12-11 06:34] LABS: BASOPHILS % (AUTO) 0.3 % (0-1); EOSINOPHILS # (AUTO) 0.1 X10'3 (0-0.9); EOSINOPHILS % (AUTO) 0.5 % (0-6); HEMATOCRIT 26.2 % (42.0-52.0); HEMOGLOBIN 8.8 g/dl (14.0-17.9); LYMPHOCYTES # (AUTO) 0.4 X10'3 (1.1-4.8); LYMPHOCYTES % (AUTO) 3.7 % (21-51); MEAN CORPUSCULAR HEMOGLOBIN 30.2 PG (27.0-31.0); MEAN CORPUSCULAR HGB CONC 33.8 g/dL (33.0-36.5); MEAN CORPUSCULAR VOLUME 89.5 FL (78-98); MEAN PLATELET VOLUME 6.5 FL (7.4-10.4); MONOCYTES # (AUTO) 0.7 X10'3 (0-0.9); MONOCYTES % (AUTO) 6.2 % (2-12); NEUTROPHILS # (AUTO) 10.7 X10'3 (1.8-7.7); NEUTROPHILS % (AUTO) 89.3 % (42-75); PLATELET COUNT 203 X10'3 (140-440); RED BLOOD COUNT 2.92 X10'6 (4.70-6.10); RED CELL DISTRIBUTION WIDTH 15.4 % (11.5-14.5); WHITE BLOOD COUNT 11.9 X10'3 (4.5-11.0)
[2021-12-11 06:47] LABS: ALANINE AMINOTRANSFERASE 17 U/L (12-78); ALBUMIN 0.9 G/DL (3.4-5.0); ALBUMIN/GLOBULIN RATIO 0.2 (1.1-1.5); ALKALINE PHOSPHATASE 87 IU/L (46-116); ANION GAP 4 (8-16); ASPARTATE AMINO TRANSFERASE 16 U/L (10-37); BILIRUBIN,TOTAL 0.3 MG/DL (0.1-1.0); BLOOD UREA NITROGEN 14 MG/DL (7-18); BUN/CREATININE RATIO 16.1 (5.4-32.0); CALCIUM 7.1 MG/DL (8.5-10.1); CHLORIDE 99 MMOL/L (99-107); CREATININE 0.87 MG/DL (0.60-1.10); GLUCOSE 103 MG/DL (70-104); MAGNESIUM 1.4 MG/DL (1.5-2.4); PHOSPHORUS 2.4 MG/DL (2.3-4.5); POTASSIUM 3.3 MMOL/L (3.5-5.1); SODIUM 130 MMOL/L (135-145); TOTAL CARBON DIOXIDE 27.4 MMOL/L (24-32); TOTAL PROTEIN 4.8 G/DL (6.4-8.2); eGFR > 90 ML/MIN
--- NOTE | 2021-12-11 06:59 | NUR ---
Patient in room ORTHO 4020. I have received report from Leticia NOONAN and had the opportunity to ask questions and assume patient care.
[2021-12-11 07:02] LABS: C-REACTIVE PROTEIN 26.71 MG/DL (0.0-0.5)
--- NOTE | 2021-12-11 07:26 | NUR ---
Message: Gregg Evangelista#[id number]- Critical - (+) blood culture right hand gram positive clusters and cocci aerobic + in 13.5hrs. this is x3 + cultures. thank you Annalise Amor [id number] ortho
[2021-12-11] MEDS: K and/or MAG REPLACEMENT MC SCH ×2 (08:00→19:38)
[2021-12-11] MEDS: docusate sod 100mg capsule PO SCH ×3 (08:04→20:23)
[2021-12-11] MEDS: magnesium Cl slow-release 64mg tablet PO PRN ×2 (08:12→20:22)
[2021-12-11 10:00] VITALS: BP 101/68
[2021-12-11] MEDS ORDERED: MESSAGE TO NURSING IV SCH (12:30)
[2021-12-11] MEDS: clindamycin-Cleocin 900mg/D5W 50 ML IV SCH (15:33)
[2021-12-11 15:41] LABS: HIV ANTIBODY 1&2 RAPID NON-REACTIVE (Neg)
[2021-12-11 18:00] VITALS: BP 119/62
--- NOTE | 2021-12-11 18:09 | NUR ---
Problems reprioritized. Patient report given, questions answered & plan of care reviewed with Leticia NOONAN .
[2021-12-11] MEDS: acetaminophen 325mg tablet PO PRN (18:10)
[2021-12-11] MEDS ORDERED: ringers solution, lacted 1,000 ML IV ONE (18:25)
[2021-12-11 22:00] VITALS: BP 118/64
--- NOTE | 2021-12-11 22:56 | NUR ---
CHANGED DILAUDID BAG IN CADD. WASTED 5MLS OF MEDICATION WHEN PRIMING LINE. WITNESSED AND WASTED WITH CASTILLO GREEN RN.
[2021-12-12] VITALS (20 sets, daily range): BP systolic 98–133; BP diastolic 66–84
[2021-12-12] MEDS ORDERED: MESSAGE TO NURSING IV SCH (00:30)
[2021-12-12] MEDS: HYDROmorph/NS 0.2 mg/ml PCA 100 ML IV SCH ×11 (01:00→21:00)
[2021-12-12] MEDS: vancomycin/NS 1 GM ADD-VANTAGE 250 ML IV SCH ×3 (01:04→22:27)
[2021-12-12 01:28] LABS: ALANINE AMINOTRANSFERASE 17 U/L (12-78); ALBUMIN 0.9 G/DL (3.4-5.0); ALBUMIN/GLOBULIN RATIO 0.3 (1.1-1.5); ALKALINE PHOSPHATASE 92 IU/L (46-116); ANION GAP 7 (8-16); ASPARTATE AMINO TRANSFERASE 17 U/L (10-37); BILIRUBIN,TOTAL 0.2 MG/DL (0.1-1.0); BLOOD UREA NITROGEN 17 MG/DL (7-18); BUN/CREATININE RATIO 19.1 (5.4-32.0); C-REACTIVE PROTEIN 23.28 MG/DL (0.0-0.5); CHLORIDE 99 MMOL/L (99-107); CREATININE 0.89 MG/DL (0.60-1.10); GLUCOSE 123 MG/DL (70-104); MAGNESIUM 1.6 MG/DL (1.5-2.4); PHOSPHORUS 3.7 MG/DL (2.3-4.5); POTASSIUM 4.1 MMOL/L (3.5-5.1); SODIUM 135 MMOL/L (135-145); TOTAL CARBON DIOXIDE 28.6 MMOL/L (24-32); TOTAL PROTEIN 4.5 G/DL (6.4-8.2); eGFR > 90 ML/MIN
[2021-12-12] MEDS: normal saline 1000ml 1,000 ML IV SCH ×3 (06:35→19:40)
--- NOTE | 2021-12-12 06:49 | NUR ---
Patient in room ORTHO 4020. I have received report from Leticia NOONAN and had the opportunity to ask questions and assume patient care.
[2021-12-12 07:15] LABS: BASOPHILS % (AUTO) 0.2 % (0-1); EOSINOPHILS # (AUTO) 0.1 X10'3 (0-0.9); EOSINOPHILS % (AUTO) 0.5 % (0-6); HEMOGLOBIN 8.8 g/dl (14.0-17.9); LYMPHOCYTES # (AUTO) 0.9 X10'3 (1.1-4.8); LYMPHOCYTES % (AUTO) 5.7 % (21-51); MEAN CORPUSCULAR HGB CONC 33.9 g/dL (33.0-36.5); MEAN CORPUSCULAR VOLUME 88.4 FL (78-98); MEAN PLATELET VOLUME 6.5 FL (7.4-10.4); MONOCYTES # (AUTO) 1.1 X10'3 (0-0.9); MONOCYTES % (AUTO) 7.4 % (2-12); NEUTROPHILS # (AUTO) 13.2 X10'3 (1.8-7.7); NEUTROPHILS % (AUTO) 86.2 % (42-75); PLATELET COUNT 222 X10'3 (140-440); RED BLOOD COUNT 2.94 X10'6 (4.70-6.10); WHITE BLOOD COUNT 15.3 X10'3 (4.5-11.0)
[2021-12-12] MEDS: clindamycin-Cleocin 900mg/D5W 50 ML IV SCH ×3 (07:45→19:41)
[2021-12-12] MEDS: K and/or MAG REPLACEMENT MC SCH ×2 (07:50→20:00)
[2021-12-12] MEDS: heparin, porcine 5000 units/ml vial SQ SCH ×2 (08:00→20:00)
[2021-12-12] MEDS: docusate sod 100mg capsule PO SCH ×2 (08:00→19:57)
[2021-12-12 08:28] LABS: PLATELET ESTIMATE NORMAL; TOTAL CELLS COUNTED 100
[2021-12-12 08:29] LABS: HYPOCHROMASIA 2+
[2021-12-12] MEDS ORDERED: labetalol 20mg/4ml (5mg/ml) syringe IV PRN (13:40)
[2021-12-12] MEDS ORDERED: HYDROmorphone/PF 0.2 MG/ML SYRINGE IV PRN ×2 (13:40)
[2021-12-12] MEDS ORDERED: fentaNYL/PF 50MCG/1 ML 2ML syringe IV PRN ×2 (13:40)
[2021-12-12] MEDS ORDERED: ondansetron/PF 4mg/2ml inj IV PRN (13:40)
[2021-12-12] MEDS ORDERED: ringers solution, lacted 1,000 ML IV SCH (13:40)
[2021-12-12] MEDS ORDERED: hydrALAZINE 20mg/ml inj. IV PRN (13:40)
--- NOTE | 2021-12-12 14:20 | NUR ---
Problems reprioritized. Patient report given, questions answered & plan of care reviewed with brielle Rn in recovery.
[2021-12-12] MEDS ORDERED: fentaNYL/PF 50MCG/1 ML 2ML syringe ONE ×2 (15:48→16:20)
[2021-12-12] MEDS ORDERED: midazolam 1 mg/ML 2ml injection ONE (15:48)
[2021-12-12] MEDS ORDERED: ondansetron/PF 4mg/2ml inj ONE (15:50)
[2021-12-12] MEDS ORDERED: propofol inj 20 ML IV ONE (15:50)
[2021-12-12] MEDS ORDERED: LIDOcaine 2% (20mg/ml) 5ml vial ONE (15:50)
[2021-12-12] MEDS ORDERED: dexamethasone sod phosphate 10mg/ml inj ONE (15:52)
[2021-12-12] MEDS ORDERED: sevoflurane 250ml liquid IH ONE (15:52)
[2021-12-12] MEDS ORDERED: vancomycin 1,000mg inj ONE ×2 (15:52→16:40)
[2021-12-12] MEDS ORDERED: dexmedetomidine 200mcg/2ml inj. IV ONE (15:52)
[2021-12-12] MEDS ORDERED: acetaminophen 1,000mg/100ml IV 100 ML IV ONE (16:09)
[2021-12-12] MEDS ORDERED: HYDROmorphone 1 mg/ml syringe ONE ×2 (16:11)
[2021-12-12] MEDS ORDERED: ketamine 50mg/5ml syringe ONE ×2 (16:23)
[2021-12-12] MEDS ORDERED: ROPIVAcaine 0.5% (5mg/ml) 30ml vial ONE ×2 (17:05)
--- NOTE | 2021-12-12 17:46 | NUR ---
Received from OR via BED , accompanied by Anesthesiologist MAK and report given by Anesthesiolgist. PT IS SLEEPY WITH SNORING REPORTATIONS, CHIN LIFE APPLIED FOR ABOUT 3 MIN AND PT WAS ABLE TO RESUME NORMAL RESPIRATIONS. PT IS DIAPHORETIC, BUT NO FEVER PRESENT. VITAL SIGNS STABLE. PT AROUSABLE TO VOICE AFTER 3 MINUTES
--- NOTE | 2021-12-12 18:20 | NUR ---
Problems reprioritized. Patient report given, questions answered & plan of care reviewed with Carine Hawk RN.
--- NOTE | 2021-12-12 18:31 | NUR ---
REPORT CALLED TO MIGUEL ÁNGEL DEL ROSARIO RN,
--- NOTE | 2021-12-12 18:46 | NUR ---
PT TRANSPORTED TO THE FLOOR IN STABLE CONDITION. ALERT AND MORE APPROPRIATE NOW, ASKING FOR FOOD. VITAL SIGNS STABLE PT USING URINAL FOR 300 OF CL YELLOW URINE PRIOER Addendum: 12/12/21 at 1933 by Ivonne Chino [employer] RN PRIOR TO DISCHARGE TO FLOOR. MIGUEL ÁNGEL DEL ROSARIO AT BEDSIDE, PT GIVEN CALL LIGHT AND VITALS WERE PERFORMED. NO BLEEDING NOTED ON RIGHT STUMP.
--- NOTE | 2021-12-12 19:30 | NUR ---
PATIENT CAME BACK TO ROOM 4020A FROM RECOVERY ROOM AFTER RIGHT BKA WAS DONE. PLACED COMFORTABLE IN BED. VITAL SIGNS MONITORED.
[2021-12-13] MEDS: clindamycin-Cleocin 900mg/D5W 50 ML IV SCH ×3 (00:14→16:42)
[2021-12-13] MEDS: HYDROmorph/NS 0.2 mg/ml PCA 100 ML IV SCH ×8 (00:29→13:00)
[2021-12-13 02:00] VITALS: BP 103/65
[2021-12-13 06:00] VITALS: BP 114/74
[2021-12-13] MEDS: vancomycin/NS 1 GM ADD-VANTAGE 250 ML IV SCH ×3 (06:01→21:46)
--- NOTE | 2021-12-13 06:49 | NUR ---
Patient in room ORTHO 4020. I have received report from Carine Hawk RN and had the opportunity to ask questions and assume patient care.
[2021-12-13 07:04] LABS: BASOPHILS % (AUTO) 0.1 % (0-1); EOSINOPHILS % (AUTO) 0.2 % (0-6); HEMATOCRIT 28.3 % (42.0-52.0); HEMOGLOBIN 9.4 g/dl (14.0-17.9); LYMPHOCYTES # (AUTO) 1.2 X10'3 (1.1-4.8); LYMPHOCYTES % (AUTO) 4.9 % (21-51); MEAN CORPUSCULAR HEMOGLOBIN 29.8 PG (27.0-31.0); MEAN CORPUSCULAR HGB CONC 33.3 g/dL (33.0-36.5); MEAN CORPUSCULAR VOLUME 89.6 FL (78-98); MEAN PLATELET VOLUME 6.6 FL (7.4-10.4); MONOCYTES # (AUTO) 1.4 X10'3 (0-0.9); MONOCYTES % (AUTO) 5.7 % (2-12); NEUTROPHILS # (AUTO) 21.1 X10'3 (1.8-7.7); NEUTROPHILS % (AUTO) 89.1 % (42-75); PLATELET COUNT 250 X10'3 (140-440); RED BLOOD COUNT 3.16 X10'6 (4.70-6.10); RED CELL DISTRIBUTION WIDTH 15.4 % (11.5-14.5); WHITE BLOOD COUNT 23.7 X10'3 (4.5-11.0)
[2021-12-13 07:14] LABS: ALANINE AMINOTRANSFERASE 19 U/L (12-78); ALBUMIN 0.9 G/DL (3.4-5.0); ALBUMIN/GLOBULIN RATIO 0.2 (1.1-1.5); ALKALINE PHOSPHATASE 96 IU/L (46-116); ANION GAP 3 (8-16); ASPARTATE AMINO TRANSFERASE 34 U/L (10-37); BILIRUBIN,TOTAL 0.2 MG/DL (0.1-1.0); BLOOD UREA NITROGEN 21 MG/DL (7-18); BUN/CREATININE RATIO 24.1 (5.4-32.0); C-REACTIVE PROTEIN 20.55 MG/DL (0.0-0.5); CALCIUM 7.1 MG/DL (8.5-10.1); CHLORIDE 103 MMOL/L (99-107); CREATININE 0.87 MG/DL (0.60-1.10); GLUCOSE 121 MG/DL (70-104); MAGNESIUM 1.6 MG/DL (1.5-2.4); PHOSPHORUS 3.3 MG/DL (2.3-4.5); POTASSIUM 5.2 MMOL/L (3.5-5.1); SODIUM 134 MMOL/L (135-145); TOTAL CARBON DIOXIDE 27.9 MMOL/L (24-32); TOTAL PROTEIN 5.2 G/DL (6.4-8.2); eGFR > 90 ML/MIN
[2021-12-13 07:21] LABS: HBSAG SCREEN Negative (Negative); HEP A AB, IGM Negative (Negative)
[2021-12-13] MEDS: docusate sod 100mg capsule PO SCH ×2 (08:00→20:29)
[2021-12-13] MEDS: K and/or MAG REPLACEMENT MC SCH ×2 (08:00→20:00)
--- NOTE | 2021-12-13 09:00 | NUR ---
Pt screaming, asking for pain meds,. very angry and cussing,. agitated. being rude. waiting for Dr to round. Dr Aware.
[2021-12-13] MEDS: heparin, porcine 5000 units/ml vial SQ SCH ×2 (09:38→20:30)
[2021-12-13 10:00] VITALS: BP 128/78
--- NOTE | 2021-12-13 11:30 | NUR ---
cursing, yelling, asking for fentanyl or more diluted. Pt is rude, trhowing stuff on the around. and yelling at staff.
[2021-12-13] MEDS: normal saline 1000ml 1,000 ML IV SCH ×2 (12:35→22:35)
[2021-12-13] MEDS ORDERED: VANCOMYCIN LEVEL IV ONE (13:30)
--- NOTE | 2021-12-13 13:30 | NUR ---
Message: Gregg Evangelista# [id number]-Pt is extremely agitated, screaming. Wants more pain meds. currently on diluted .3 continuous & 0.2 demand. can we get him 1 dose of Ativan? please. He is non -stop. Annalise [id number]
[2021-12-13 14:00] VITALS: BP 141/86
[2021-12-13] MEDS ORDERED: vancomycin/NS 1 GM ADD-VANTAGE 250 ML IV ONE (14:05)
[2021-12-13] MEDS ORDERED: ketorolac tromethamine 15mg/ml inj. IV ONE (14:55)
[2021-12-13] MEDS ORDERED: HYDROcodone/acetaminophen 5mg/325mg tablet PO PRN (15:00)
[2021-12-13] MEDS: PCA waste documentation MC SCH (15:25)
[2021-12-13] MEDS: gabapentin 400mg capsule PO SCH (15:37)
[2021-12-13] MEDS: HYDROcodone/acetaminophen 10/325mg tab PO PRN ×2 (15:38→20:30)
[2021-12-13 18:00] VITALS: BP 130/74
--- NOTE | 2021-12-13 18:26 | NUR ---
Message: Message: Gregg Evangelista# [id number]-Pt did really well with Toradol. Is it possible to have some PRN doses for tonight and tomorrow. He finally rested. Annalise Amor [phone]
--- NOTE | 2021-12-13 18:35 | NUR ---
Problems reprioritized. Patient report given, questions answered & plan of care reviewed with Carine Hawk RN.
--- NOTE | 2021-12-13 18:40 | NUR ---
Patient in room ORTHO 4020. I have received report from MILE NOONAN and had the opportunity to ask questions and assume patient care.
[2021-12-13] MEDS: traZODone 150mg tablet PO SCH (20:29)
[2021-12-13] MEDS: prazosin 1mg capsule PO SCH (20:29)
[2021-12-13] MEDS: buPROPion SR 150mg tablet PO SCH (20:40)
[2021-12-13] MEDS: ketorolac trometh. 30mg/ml inj. IV PRN (21:35)
[2021-12-13 22:00] VITALS: BP 117/67
[2021-12-14] MEDS: normal saline 1000ml 1,000 ML IV SCH ×2 (04:05→15:30)
[2021-12-14] MEDS: ketorolac trometh. 30mg/ml inj. IV PRN ×2 (04:05→11:04)
[2021-12-14] MEDS: LORazepam 1 MG tablet PO PRN (04:05)
[2021-12-14] MEDS: vancomycin/NS 1 GM ADD-VANTAGE 250 ML IV SCH ×3 (05:55→21:48)
[2021-12-14 06:30] VITALS: BP 114/66
--- NOTE | 2021-12-14 06:30 | NUR ---
Problems reprioritized. Patient report given, questions answered & plan of care reviewed with OBDULIO NOONAN.
[2021-12-14 06:37] LABS: BASOPHILS % (AUTO) 0.1 % (0-1); EOSINOPHILS # (AUTO) 0.1 X10'3 (0-0.9); EOSINOPHILS % (AUTO) 0.7 % (0-6); HEMATOCRIT 23.8 % (42.0-52.0); HEMOGLOBIN 8.1 g/dl (14.0-17.9); LYMPHOCYTES # (AUTO) 1.2 X10'3 (1.1-4.8); LYMPHOCYTES % (AUTO) 7.5 % (21-51); MEAN CORPUSCULAR HEMOGLOBIN 30.4 PG (27.0-31.0); MEAN CORPUSCULAR VOLUME 89.4 FL (78-98); MEAN PLATELET VOLUME 6.9 FL (7.4-10.4); MONOCYTES # (AUTO) 0.6 X10'3 (0-0.9); MONOCYTES % (AUTO) 3.9 % (2-12); NEUTROPHILS # (AUTO) 13.4 X10'3 (1.8-7.7); NEUTROPHILS % (AUTO) 87.8 % (42-75); PLATELET COUNT 249 X10'3 (140-440); RED BLOOD COUNT 2.66 X10'6 (4.70-6.10); RED CELL DISTRIBUTION WIDTH 15.2 % (11.5-14.5); WHITE BLOOD COUNT 15.3 X10'3 (4.5-11.0)
[2021-12-14 06:41] LABS: ALANINE AMINOTRANSFERASE 26 U/L (12-78); ALBUMIN 0.9 G/DL (3.4-5.0); ALBUMIN/GLOBULIN RATIO 0.2 (1.1-1.5); ALKALINE PHOSPHATASE 80 IU/L (46-116); ANION GAP 5 (8-16); ASPARTATE AMINO TRANSFERASE 35 U/L (10-37); BILIRUBIN,TOTAL 0.2 MG/DL (0.1-1.0); BLOOD UREA NITROGEN 17 MG/DL (7-18); BUN/CREATININE RATIO 22.7 (5.4-32.0); C-REACTIVE PROTEIN 11.46 MG/DL (0.0-0.5); CALCIUM 7.2 MG/DL (8.5-10.1); CHLORIDE 104 MMOL/L (99-107); CREATININE 0.75 MG/DL (0.60-1.10); GLUCOSE 92 MG/DL (70-104); MAGNESIUM 1.5 MG/DL (1.5-2.4); PHOSPHORUS 3.9 MG/DL (2.3-4.5); POTASSIUM 4.8 MMOL/L (3.5-5.1); SODIUM 135 MMOL/L (135-145); TOTAL CARBON DIOXIDE 25.8 MMOL/L (24-32); TOTAL PROTEIN 5.4 G/DL (6.4-8.2); eGFR > 90 ML/MIN
[2021-12-14 07:13] LABS: ANISOCYTOSIS FEW; PLATELET ESTIMATE NORMAL; POLYCHROMASIA FEW; TOTAL CELLS COUNTED 100
[2021-12-14] MEDS: K and/or MAG REPLACEMENT MC SCH ×2 (08:00→19:39)
[2021-12-14] MEDS: docusate sod 100mg capsule PO SCH ×2 (10:59→19:52)
[2021-12-14] MEDS: gabapentin 400mg capsule PO SCH ×3 (10:59→15:27)
[2021-12-14] MEDS: buPROPion SR 150mg tablet PO SCH (10:59)
[2021-12-14] MEDS: ESCITALOPRAM OXALATE 5 MG TABLET PO SCH (10:59)
[2021-12-14] MEDS: heparin, porcine 5000 units/ml vial SQ SCH ×2 (11:00→19:53)
[2021-12-14] MEDS: pantoprazole 40mg Tablet.DR PO SCH (11:00)
[2021-12-14] MEDS ORDERED: iohexol 350MG/ML 100ml bottle IV ONE (11:00)
--- NOTE | 2021-12-14 11:33 | NUR ---
Message: [id number] Hema Evangelista: ROSALEE.....GRAM POSITIVE COCCI IN CLUSTERS SEEN IN ANAEROBIC BOTTLE, HOURS TO DETECT: 45.25 @ 12/14/21 1102 thanks! sandie [email or web address] Transaction number: [id number]
[2021-12-14] MEDS: naltrexone 50mg tablet PO SCH (12:36)
[2021-12-14 15:42] VITALS: BP 123/71
--- NOTE | 2021-12-14 16:04 | NUR ---
Call to Dr Whitley w/ no return call by end of shift. No post op orders. Primary nurse to obtain them and will f/u on Friday. Addendum: 12/14/21 at 1605 by Isabella Anna RN Amended: Links added.
[2021-12-14 18:00] VITALS: BP 118/73
--- NOTE | 2021-12-14 18:05 | NUR ---
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 Hx homeless, IVDA, and heavy etoh per EMR. Pt PO 100% regular diet meals meeting estimated needs. RENEA d/w RN regarding routine thiamine and folic acid supplementation for etoh hx if MD agreeable. RD recommends Stanislaw shake BIDBD given wound healing needs; MD notified. LBM 12/13 receiving routine colace per EMR. No further nutrition interventions at this time. Will continue to monitor. Rec: Rec: 1. continue regular diet 2. Stanislaw shake BIDBD for wound healing; pending MD verification in EMR 3. thiamine and folic acid supplementation for etoh hx if MD agreeable 4. routine bowel care 5. scaled wt this admit; subsequent weekly wts Addendum: 12/14/21 at [address] Amended: Links added.
--- NOTE | 2021-12-14 18:18 | NUR ---
Problems reprioritized. Patient report given, questions answered & plan of care reviewed with SARAN Mckenzie.
[2021-12-14] MEDS: nystatin 500,000 unit/5ML UD oral suspension PO SCH (19:52)
[2021-12-14] MEDS: acetaminophen 325mg tablet PO PRN (20:42)
[2021-12-14] MEDS: traZODone 150mg tablet PO SCH (20:42)
[2021-12-14] MEDS: prazosin 1mg capsule PO SCH (20:45)
[2021-12-14 22:00] VITALS: BP 110/57
[2021-12-15] MEDS: gabapentin 400mg capsule PO SCH ×4 (00:21→23:59)
[2021-12-15] MEDS: NORMAL SALINE IV SCH ×3 (00:25→16:47)
[2021-12-15] MEDS: RIFAMPIN IV SCH ×3 (00:25→16:47)
[2021-12-15] MEDS: normal saline 1000ml 1,000 ML IV SCH (03:47)
[2021-12-15] MEDS: HYDROcodone/acetaminophen 10/325mg tab PO PRN ×3 (03:47→20:14)
[2021-12-15] MEDS ORDERED: VANCOMYCIN LEVEL IV ONE (05:30)
[2021-12-15] MEDS: vancomycin/NS 1 GM ADD-VANTAGE 250 ML IV SCH ×3 (05:36→22:06)
[2021-12-15 06:00] VITALS: BP 122/72
--- NOTE | 2021-12-15 06:24 | NUR ---
Problems reprioritized. Patient report given, questions answered & plan of care reviewed with WALESKA NOONAN.
[2021-12-15 06:31] LABS: BASOPHILS # (AUTO) 0.1 X10'3 (0-0.2); BASOPHILS % (AUTO) 0.3 % (0-1); EOSINOPHILS # (AUTO) 0.1 X10'3 (0-0.9); EOSINOPHILS % (AUTO) 0.5 % (0-6); HEMATOCRIT 24.7 % (42.0-52.0); HEMOGLOBIN 8.3 g/dl (14.0-17.9); LYMPHOCYTES # (AUTO) 1.4 X10'3 (1.1-4.8); LYMPHOCYTES % (AUTO) 6.9 % (21-51); MEAN CORPUSCULAR HEMOGLOBIN 30.2 PG (27.0-31.0); MEAN CORPUSCULAR HGB CONC 33.7 g/dL (33.0-36.5); MEAN CORPUSCULAR VOLUME 89.5 FL (78-98); MEAN PLATELET VOLUME 6.6 FL (7.4-10.4); MONOCYTES # (AUTO) 0.7 X10'3 (0-0.9); MONOCYTES % (AUTO) 3.5 % (2-12); NEUTROPHILS # (AUTO) 17.9 X10'3 (1.8-7.7); NEUTROPHILS % (AUTO) 88.8 % (42-75); PLATELET COUNT 324 X10'3 (140-440); RED BLOOD COUNT 2.75 X10'6 (4.70-6.10); RED CELL DISTRIBUTION WIDTH 15.1 % (11.5-14.5); WHITE BLOOD COUNT 20.2 X10'3 (4.5-11.0)
[2021-12-15 06:40] LABS: ALANINE AMINOTRANSFERASE 28 U/L (12-78); ALBUMIN/GLOBULIN RATIO 0.2 (1.1-1.5); ALKALINE PHOSPHATASE 100 IU/L (46-116); ANION GAP 4 (8-16); ASPARTATE AMINO TRANSFERASE 27 U/L (10-37); BILIRUBIN,TOTAL 0.4 MG/DL (0.1-1.0); BLOOD UREA NITROGEN 17 MG/DL (7-18); BUN/CREATININE RATIO 20.5 (5.4-32.0); CALCIUM 7.5 MG/DL (8.5-10.1); CHLORIDE 101 MMOL/L (99-107); CREATININE 0.83 MG/DL (0.60-1.10); GLUCOSE 108 MG/DL (70-104); MAGNESIUM 1.6 MG/DL (1.5-2.4); PHOSPHORUS 4.9 MG/DL (2.3-4.5); POTASSIUM 4.6 MMOL/L (3.5-5.1); SODIUM 132 MMOL/L (135-145); TOTAL CARBON DIOXIDE 27.5 MMOL/L (24-32); TOTAL PROTEIN 6.1 G/DL (6.4-8.2); eGFR > 90 ML/MIN
--- NOTE | 2021-12-15 06:48 | NUR ---
Patient in room ORTHO 4020. I have received report from SARAN Mckenzie and had the opportunity to ask questions and assume patient care.
[2021-12-15] MEDS ORDERED: JUVEN Shake w/Arg/Glut/Ca2+Bmb (Juven 19.3gm) pkt 240ml PO SCH (07:30)
[2021-12-15] MEDS: K and/or MAG REPLACEMENT MC SCH ×2 (08:00→19:01)
[2021-12-15] MEDS: pantoprazole 40mg Tablet.DR PO SCH (08:12)
[2021-12-15] MEDS: buPROPion SR 150mg tablet PO SCH (08:12)
[2021-12-15] MEDS: nystatin 500,000 unit/5ML UD oral suspension PO SCH ×2 (08:12→20:14)
[2021-12-15] MEDS: docusate sod 100mg capsule PO SCH ×2 (08:12→20:15)
[2021-12-15] MEDS: ESCITALOPRAM OXALATE 5 MG TABLET PO SCH (08:12)
[2021-12-15] MEDS: naltrexone 50mg tablet PO SCH (08:12)
[2021-12-15] MEDS: heparin, porcine 5000 units/ml vial SQ SCH ×2 (08:13→20:14)
[2021-12-15 10:00] VITALS: BP 126/80
[2021-12-15 15:00] VITALS: BP 117/70
[2021-12-15 18:00] VITALS: BP 124/71
--- NOTE | 2021-12-15 18:17 | NUR ---
Problems reprioritized. Patient report given, questions answered & plan of care reviewed with SARAN Mckenzie.
--- NOTE | 2021-12-15 18:42 | NUR ---
Patient in room ORTHO 4020. I have received report from WALESKA NOONAN and had the opportunity to ask questions and assume patient care.
[2021-12-15] MEDS: traZODone 150mg tablet PO SCH (20:14)
[2021-12-15] MEDS: prazosin 1mg capsule PO SCH (20:15)
[2021-12-15 22:00] VITALS: BP 115/63
[2021-12-15] MEDS: LORazepam 1 MG tablet PO PRN (22:06)
[2021-12-16 06:06] VITALS: BP 116/72
[2021-12-16] MEDS: vancomycin/NS 1 GM ADD-VANTAGE 250 ML IV SCH ×3 (06:35→22:04)
[2021-12-16] MEDS: ketorolac trometh. 30mg/ml inj. IV PRN (06:36)
[2021-12-16 07:24] LABS: ALANINE AMINOTRANSFERASE 27 U/L (12-78); ALBUMIN 1.2 G/DL (3.4-5.0); ALBUMIN/GLOBULIN RATIO 0.2 (1.1-1.5); ALKALINE PHOSPHATASE 90 IU/L (46-116); ANION GAP 3 (8-16); ASPARTATE AMINO TRANSFERASE 22 U/L (10-37); BILIRUBIN,TOTAL 0.6 MG/DL (0.1-1.0); BLOOD UREA NITROGEN 15 MG/DL (7-18); BUN/CREATININE RATIO 17.6 (5.4-32.0); C-REACTIVE PROTEIN 8.19 MG/DL (0.0-0.5); CHLORIDE 100 MMOL/L (99-107); CREATININE 0.85 MG/DL (0.60-1.10); GLUCOSE 85 MG/DL (70-104); MAGNESIUM 1.9 MG/DL (1.5-2.4); PHOSPHORUS 4.8 MG/DL (2.3-4.5); POTASSIUM 4.5 MMOL/L (3.5-5.1); SODIUM 134 MMOL/L (135-145); TOTAL CARBON DIOXIDE 30.8 MMOL/L (24-32); TOTAL PROTEIN 6.8 G/DL (6.4-8.2); eGFR > 90 ML/MIN
[2021-12-16 07:31] LABS: BASOPHILS % (AUTO) 0.1 % (0-1); EOSINOPHILS # (AUTO) 0.1 X10'3 (0-0.9); EOSINOPHILS % (AUTO) 0.8 % (0-6); HEMATOCRIT 26.6 % (42.0-52.0); HEMOGLOBIN 8.9 g/dl (14.0-17.9); LYMPHOCYTES # (AUTO) 1.5 X10'3 (1.1-4.8); LYMPHOCYTES % (AUTO) 8.8 % (21-51); MEAN CORPUSCULAR HEMOGLOBIN 30.2 PG (27.0-31.0); MEAN CORPUSCULAR HGB CONC 33.5 g/dL (33.0-36.5); MEAN CORPUSCULAR VOLUME 89.9 FL (78-98); MEAN PLATELET VOLUME 6.7 FL (7.4-10.4); MONOCYTES # (AUTO) 0.6 X10'3 (0-0.9); MONOCYTES % (AUTO) 3.6 % (2-12); NEUTROPHILS # (AUTO) 14.4 X10'3 (1.8-7.7); NEUTROPHILS % (AUTO) 86.7 % (42-75); PLATELET COUNT 463 X10'3 (140-440); RED BLOOD COUNT 2.96 X10'6 (4.70-6.10); RED CELL DISTRIBUTION WIDTH 14.6 % (11.5-14.5); WHITE BLOOD COUNT 16.5 X10'3 (4.5-11.0)
[2021-12-16] MEDS: gabapentin 400mg capsule PO SCH ×2 (07:38→15:42)
[2021-12-16] MEDS: nystatin 500,000 unit/5ML UD oral suspension PO SCH ×3 (07:38→22:03)
[2021-12-16] MEDS: pantoprazole 40mg Tablet.DR PO SCH (07:39)
[2021-12-16] MEDS: buPROPion SR 150mg tablet PO SCH (07:39)
[2021-12-16] MEDS: ESCITALOPRAM OXALATE 5 MG TABLET PO SCH (07:39)
[2021-12-16] MEDS: docusate sod 100mg capsule PO SCH ×2 (07:39→20:00)
[2021-12-16] MEDS: heparin, porcine 5000 units/ml vial SQ SCH ×2 (07:40→22:01)
[2021-12-16] MEDS: naltrexone 50mg tablet PO SCH (07:44)
[2021-12-16] MEDS: K and/or MAG REPLACEMENT MC SCH ×2 (08:00→20:00)
[2021-12-16] MEDS: NORMAL SALINE IV SCH ×4 (08:40→15:44)
[2021-12-16] MEDS: RIFAMPIN IV SCH ×4 (08:40→15:44)
[2021-12-16 09:03] LABS: TOTAL CELLS COUNTED 100
[2021-12-16 09:04] LABS: PLATELET ESTIMATE INCREASED; STOMATOCYTES FEW
--- NOTE | 2021-12-16 10:45 | NUR ---
padder cushion: I have reviewed and agree with all interventions, assessments performed and documented by Prudence RN.
[2021-12-16 10:48] VITALS: BP 112/65
--- NOTE | 2021-12-16 10:49 | NUR ---
Problems reprioritized. Patient report given, questions answered & plan of care reviewed with GUILHERME NOONAN.
[2021-12-16] MEDS: LORazepam 1 MG tablet PO PRN ×2 (11:51→22:02)
[2021-12-16] MEDS: HYDROcodone/acetaminophen 10/325mg tab PO PRN ×2 (12:47→22:03)
[2021-12-16] MEDS ORDERED: LIDOcaine Viscous 15ml cup MM PRN (13:00)
[2021-12-16 17:00] VITALS: BP 122/71
[2021-12-16 22:00] VITALS: BP 124/73
[2021-12-16] MEDS: prazosin 1mg capsule PO SCH (22:02)
[2021-12-16] MEDS: traZODone 150mg tablet PO SCH (22:02)
[2021-12-16 22:05] VITALS: BP 118/80
[2021-12-17] MEDS: gabapentin 400mg capsule PO SCH ×3 (00:04→17:51)
[2021-12-17] MEDS: NORMAL SALINE IV SCH ×3 (00:05→17:52)
[2021-12-17] MEDS: RIFAMPIN IV SCH ×3 (00:05→17:52)
[2021-12-17 05:01] VITALS: BP 111/63
[2021-12-17] MEDS: HYDROcodone/acetaminophen 10/325mg tab PO PRN ×4 (05:04→23:10)
[2021-12-17] MEDS: vancomycin/NS 1 GM ADD-VANTAGE 250 ML IV SCH ×3 (05:04→22:56)
[2021-12-17 06:00] VITALS: BP 112/63
[2021-12-17 06:11] LABS: BASOPHILS # (AUTO) 0.1 X10'3 (0-0.2); BASOPHILS % (AUTO) 0.4 % (0-1); EOSINOPHILS # (AUTO) 0.2 X10'3 (0-0.9); EOSINOPHILS % (AUTO) 1.2 % (0-6); HEMATOCRIT 26.1 % (42.0-52.0); HEMOGLOBIN 8.8 g/dl (14.0-17.9); LYMPHOCYTES # (AUTO) 1.4 X10'3 (1.1-4.8); LYMPHOCYTES % (AUTO) 9.4 % (21-51); MEAN CORPUSCULAR HEMOGLOBIN 30.2 PG (27.0-31.0); MEAN CORPUSCULAR HGB CONC 33.8 g/dL (33.0-36.5); MEAN CORPUSCULAR VOLUME 89.4 FL (78-98); MEAN PLATELET VOLUME 6.3 FL (7.4-10.4); MONOCYTES # (AUTO) 0.6 X10'3 (0-0.9); MONOCYTES % (AUTO) 4.5 % (2-12); NEUTROPHILS # (AUTO) 12.2 X10'3 (1.8-7.7); NEUTROPHILS % (AUTO) 84.5 % (42-75); PLATELET COUNT 586 X10'3 (140-440); RED BLOOD COUNT 2.92 X10'6 (4.70-6.10); RED CELL DISTRIBUTION WIDTH 14.9 % (11.5-14.5); WHITE BLOOD COUNT 14.4 X10'3 (4.5-11.0)
--- NOTE | 2021-12-17 06:20 | NUR ---
Problems reprioritized. Patient report given, questions answered & plan of care reviewed with SARAN Pedraza.
--- NOTE | 2021-12-17 06:25 | NUR ---
Patient in room ORTHO 4008. I have received report from Judy NOONAN and had the opportunity to ask questions and assume patient care.
[2021-12-17 06:27] LABS: ALANINE AMINOTRANSFERASE 26 U/L (12-78); ALBUMIN 1.3 G/DL (3.4-5.0); ALBUMIN/GLOBULIN RATIO 0.2 (1.1-1.5); ALKALINE PHOSPHATASE 91 IU/L (46-116); ANION GAP 3 (8-16); ASPARTATE AMINO TRANSFERASE 19 U/L (10-37); BILIRUBIN,TOTAL 0.4 MG/DL (0.1-1.0); BLOOD UREA NITROGEN 13 MG/DL (7-18); BUN/CREATININE RATIO 14.4 (5.4-32.0); C-REACTIVE PROTEIN 5.67 MG/DL (0.0-0.5); CHLORIDE 99 MMOL/L (99-107); GLUCOSE 122 MG/DL (70-104); MAGNESIUM 1.7 MG/DL (1.5-2.4); PHOSPHORUS 4.7 MG/DL (2.3-4.5); POTASSIUM 4.5 MMOL/L (3.5-5.1); SODIUM 131 MMOL/L (135-145); TOTAL CARBON DIOXIDE 29.4 MMOL/L (24-32); eGFR > 90 ML/MIN
[2021-12-17] MEDS: K and/or MAG REPLACEMENT MC SCH ×2 (08:00→20:00)
[2021-12-17] MEDS: naltrexone 50mg tablet PO SCH (08:00)
[2021-12-17] MEDS: docusate sod 100mg capsule PO SCH ×2 (08:00→20:00)
[2021-12-17] MEDS: buPROPion SR 150mg tablet PO SCH (08:12)
[2021-12-17] MEDS: pantoprazole 40mg Tablet.DR PO SCH (08:12)
[2021-12-17] MEDS: ESCITALOPRAM OXALATE 5 MG TABLET PO SCH (08:12)
[2021-12-17] MEDS: heparin, porcine 5000 units/ml vial SQ SCH ×2 (08:14→20:43)
[2021-12-17 08:16] LABS: PLATELET ESTIMATE INCREASED; TOTAL CELLS COUNTED 100
[2021-12-17] MEDS: nystatin 500,000 unit/5ML UD oral suspension PO SCH ×3 (08:28→20:42)
[2021-12-17 10:00] VITALS: BP 116/67
[2021-12-17] MEDS ORDERED: LIDOcaine 1%/PF 5ML 10 MG/ML VIAL ONE (10:49)
--- NOTE | 2021-12-17 17:45 | NUR ---
Problems reprioritized. Patient report given, questions answered & plan of care reviewed with Judy NOONAN.
--- NOTE | 2021-12-17 17:55 | NUR ---
Shortly after hanging Rifampin (not hung until 1739) patient noted dampness on forearm. Moisture on arm and under dressing noted. IV apparently starting to leak. IV Rifampin turned off until IV can be restarted.
[2021-12-17 18:00] VITALS: BP 116/65
[2021-12-17 20:41] VITALS: BP 119/70
[2021-12-17] MEDS: prazosin 1mg capsule PO SCH (20:42)
[2021-12-17] MEDS: LORazepam 1 MG tablet PO PRN (20:42)
[2021-12-17] MEDS: ibuprofen 200mg tablet PO PRN (20:43)
[2021-12-17] MEDS: traZODone 150mg tablet PO SCH (20:43)
[2021-12-17 22:00] VITALS: BP 127/78
[2021-12-18] MEDS: RIFAMPIN IV SCH ×3 (00:52→15:54)
[2021-12-18] MEDS: NORMAL SALINE IV SCH ×3 (00:52→15:54)
[2021-12-18] MEDS: gabapentin 400mg capsule PO SCH ×3 (00:52→15:53)
[2021-12-18] MEDS: vancomycin/NS 1 GM ADD-VANTAGE 250 ML IV SCH ×3 (05:38→14:08)
--- NOTE | 2021-12-18 05:58 | NUR ---
0538 Hung patient's Vanco and and the IV was alarming pressure high. Tried to flush and could not get IV to flush easily. It would flush but very slowly. Undid Vanco on eMAR but it is primed and ready to go in room still. Will let dayshift nurse know.
[2021-12-18 06:00] VITALS: BP 110/66
--- NOTE | 2021-12-18 06:41 | NUR ---
Problems reprioritized. Patient report given, questions answered & plan of care reviewed with SARAN Dale. Suyapa aware that pt IV is not flushing and he has not recevied his morning dose of Vanco.
--- NOTE | 2021-12-18 06:59 | NUR ---
Patient in room ORTHO 4008. I have received report from SARAN Kim and had the opportunity to ask questions and assume patient care.
[2021-12-18 07:44] LABS: ALANINE AMINOTRANSFERASE 22 U/L (12-78); ALBUMIN 1.4 G/DL (3.4-5.0); ALBUMIN/GLOBULIN RATIO 0.2 (1.1-1.5); ALKALINE PHOSPHATASE 118 IU/L (46-116); ANION GAP 14 (8-16); ASPARTATE AMINO TRANSFERASE 25 U/L (10-37); BILIRUBIN,TOTAL 0.1 MG/DL (0.1-1.0); BLOOD UREA NITROGEN 20 MG/DL (7-18); BUN/CREATININE RATIO 22.2 (5.4-32.0); C-REACTIVE PROTEIN 3.49 MG/DL (0.0-0.5); CHLORIDE 101 MMOL/L (99-107); GLUCOSE 101 MG/DL (70-104); MAGNESIUM 1.8 MG/DL (1.5-2.4); PHOSPHORUS 5.7 MG/DL (2.3-4.5); POTASSIUM 5.1 MMOL/L (3.5-5.1); SODIUM 133 MMOL/L (135-145); TOTAL CARBON DIOXIDE 18.4 MMOL/L (24-32); TOTAL PROTEIN 7.6 G/DL (6.4-8.2); eGFR > 90 ML/MIN
[2021-12-18 07:50] LABS: BASOPHILS # (AUTO) 0.1 X10'3 (0-0.2); BASOPHILS % (AUTO) 0.7 % (0-1); EOSINOPHILS # (AUTO) 0.2 X10'3 (0-0.9); EOSINOPHILS % (AUTO) 1.5 % (0-6); HEMATOCRIT 30.3 % (42.0-52.0); HEMOGLOBIN 9.5 g/dl (14.0-17.9); LYMPHOCYTES # (AUTO) 1.4 X10'3 (1.1-4.8); LYMPHOCYTES % (AUTO) 12.4 % (21-51); MEAN CORPUSCULAR HEMOGLOBIN 28.9 PG (27.0-31.0); MEAN CORPUSCULAR HGB CONC 31.4 g/dL (33.0-36.5); MEAN CORPUSCULAR VOLUME 92.1 FL (78-98); MEAN PLATELET VOLUME 6.4 FL (7.4-10.4); MONOCYTES # (AUTO) 0.7 X10'3 (0-0.9); MONOCYTES % (AUTO) 6.7 % (2-12); NEUTROPHILS # (AUTO) 8.7 X10'3 (1.8-7.7); NEUTROPHILS % (AUTO) 78.7 % (42-75); RED BLOOD COUNT 3.29 X10'6 (4.70-6.10); RED CELL DISTRIBUTION WIDTH 15.3 % (11.5-14.5); WHITE BLOOD COUNT 11.1 X10'3 (4.5-11.0)
[2021-12-18 07:51] LABS: PLATELET COUNT 637 X10'3 (140-440)
[2021-12-18] MEDS: naltrexone 50mg tablet PO SCH (08:00)
[2021-12-18] MEDS: K and/or MAG REPLACEMENT MC SCH ×2 (08:00→20:00)
[2021-12-18] MEDS: docusate sod 100mg capsule PO SCH ×2 (08:00→20:00)
[2021-12-18 08:04] LABS: TOTAL CELLS COUNTED 100
[2021-12-18 08:07] LABS: PLATELET ESTIMATE INCREASED
[2021-12-18] MEDS: buPROPion SR 150mg tablet PO SCH (09:57)
[2021-12-18] MEDS: ESCITALOPRAM OXALATE 5 MG TABLET PO SCH (09:57)
[2021-12-18] MEDS: nystatin 500,000 unit/5ML UD oral suspension PO SCH ×3 (09:58→20:25)
[2021-12-18] MEDS: heparin, porcine 5000 units/ml vial SQ SCH ×2 (09:59→20:26)
[2021-12-18 10:00] VITALS: BP 108/66
[2021-12-18] MEDS: pantoprazole 40mg Tablet.DR PO SCH (10:07)
[2021-12-18] MEDS: LORazepam 1 MG tablet PO PRN (10:07)
[2021-12-18] MEDS ORDERED: VANCOMYCIN LEVEL IV ONE (13:30)
[2021-12-18] MEDS: ketorolac trometh. 30mg/ml inj. IV PRN (14:16)
[2021-12-18 18:00] VITALS: BP 109/67
[2021-12-18] MEDS ORDERED: vancomycin/NS 1 GM ADD-VANTAGE 250 ML IV SCH (18:00)
--- NOTE | 2021-12-18 19:11 | NUR ---
Today I was over the staffing ratio with 6 patients including 2 tele patients. For this reason the medication administration was delayed.
--- NOTE | 2021-12-18 19:12 | NUR ---
Problems reprioritized. Patient report given, questions answered & plan of care reviewed with SARAN Kim.
--- NOTE | 2021-12-18 19:22 | NUR ---
Spoke with pharmacy and was told that the Vanco for this patient was pushed back to 1999 due to the high vanco trough today and it was ok to give.
[2021-12-18 20:25] VITALS: BP 114/65
[2021-12-18] MEDS: prazosin 1mg capsule PO SCH (20:25)
[2021-12-18] MEDS: traZODone 150mg tablet PO SCH (20:25)
[2021-12-18 22:00] VITALS: BP_SYST 107; BP_SYST 160; BP_DIAS 63; BP_DIAS 84
[2021-12-18] MEDS: ibuprofen 200mg tablet PO PRN (22:10)
--- NOTE | 2021-12-18 23:42 | NUR ---
Pt off floor in procedure during 1800 vital signs. Addendum: 12/18/21 at 2345 by Judy Acevedo RN wrong patient
[2021-12-19 00:35] VITALS: BP 113/60
[2021-12-19] MEDS: RIFAMPIN IV SCH ×3 (00:41→17:21)
[2021-12-19] MEDS: NORMAL SALINE IV SCH ×3 (00:41→17:21)
[2021-12-19] MEDS: HYDROcodone/acetaminophen 10/325mg tab PO PRN ×2 (00:42→22:31)
[2021-12-19] MEDS: gabapentin 400mg capsule PO SCH ×3 (00:42→17:21)
[2021-12-19] MEDS ORDERED: vancomycin/NS 1 GM ADD-VANTAGE 250 ML IV SCH (05:21)
[2021-12-19 06:00] VITALS: BP 145/68
[2021-12-19 06:00] LABS: BASOPHILS # (AUTO) 0.1 X10'3 (0-0.2); BASOPHILS % (AUTO) 0.6 % (0-1); EOSINOPHILS # (AUTO) 0.2 X10'3 (0-0.9); EOSINOPHILS % (AUTO) 1.5 % (0-6); HEMOGLOBIN 9.8 g/dl (14.0-17.9); LYMPHOCYTES % (AUTO) 16.7 % (21-51)
[2021-12-19 06:02] LABS: HEMATOCRIT 28.4 % (42.0-52.0); LYMPHOCYTES # (AUTO) 1.8 X10'3 (1.1-4.8); MEAN CORPUSCULAR HEMOGLOBIN 30.7 PG (27.0-31.0); MEAN CORPUSCULAR HGB CONC 34.4 g/dL (33.0-36.5); MEAN CORPUSCULAR VOLUME 89.3 FL (78-98); MEAN PLATELET VOLUME 5.8 FL (7.4-10.4); MONOCYTES # (AUTO) 0.8 X10'3 (0-0.9); MONOCYTES % (AUTO) 7.7 % (2-12); NEUTROPHILS # (AUTO) 7.9 X10'3 (1.8-7.7); NEUTROPHILS % (AUTO) 73.5 % (42-75); PLATELET COUNT 841 X10'3 (140-440); RED BLOOD COUNT 3.18 X10'6 (4.70-6.10); RED CELL DISTRIBUTION WIDTH 14.6 % (11.5-14.5); WHITE BLOOD COUNT 10.7 X10'3 (4.5-11.0)
--- NOTE | 2021-12-19 06:10 | NUR ---
Problems reprioritized. Patient report given, questions answered & plan of care reviewed with SARAN Dale.
[2021-12-19 06:18] LABS: ALANINE AMINOTRANSFERASE 23 U/L (12-78); ALBUMIN 1.6 G/DL (3.4-5.0); ALBUMIN/GLOBULIN RATIO 0.3 (1.1-1.5); ALKALINE PHOSPHATASE 126 IU/L (46-116); ANION GAP 5 (8-16); ASPARTATE AMINO TRANSFERASE 19 U/L (10-37); BILIRUBIN,TOTAL 0.2 MG/DL (0.1-1.0); BLOOD UREA NITROGEN 25 MG/DL (7-18); BUN/CREATININE RATIO 29.1 (5.4-32.0); C-REACTIVE PROTEIN 2.38 MG/DL (0.0-0.5); CALCIUM 8.2 MG/DL (8.5-10.1); CHLORIDE 103 MMOL/L (99-107); CREATININE 0.86 MG/DL (0.60-1.10); GLUCOSE 88 MG/DL (70-104); MAGNESIUM 1.8 MG/DL (1.5-2.4); PHOSPHORUS 5.2 MG/DL (2.3-4.5); POTASSIUM 4.6 MMOL/L (3.5-5.1); SODIUM 135 MMOL/L (135-145); TOTAL CARBON DIOXIDE 26.8 MMOL/L (24-32); TOTAL PROTEIN 7.8 G/DL (6.4-8.2); eGFR > 90 ML/MIN
--- NOTE | 2021-12-19 06:24 | NUR ---
Patient in room ORTHO 4008. I have received report from SARAN Kmi and had the opportunity to ask questions and assume patient care.
[2021-12-19] MEDS: docusate sod 100mg capsule PO SCH ×2 (08:00→20:00)
[2021-12-19] MEDS: K and/or MAG REPLACEMENT MC SCH ×2 (08:00→20:00)
[2021-12-19 08:54] LABS: PLATELET ESTIMATE INCREASED; TOTAL CELLS COUNTED 100
[2021-12-19] MEDS: buPROPion SR 150mg tablet PO SCH (09:41)
[2021-12-19] MEDS: ESCITALOPRAM OXALATE 5 MG TABLET PO SCH (09:42)
[2021-12-19] MEDS: heparin, porcine 5000 units/ml vial SQ SCH ×2 (09:42→20:47)
[2021-12-19] MEDS: nystatin 500,000 unit/5ML UD oral suspension PO SCH ×3 (09:43→20:46)
[2021-12-19] MEDS: pantoprazole 40mg Tablet.DR PO SCH (09:43)
[2021-12-19] MEDS: naltrexone 50mg tablet PO SCH (09:50)
[2021-12-19 10:00] VITALS: BP 104/67
[2021-12-19] MEDS: vancomycin/NS 1 GM ADD-VANTAGE 250 ML IV SCH ×2 (11:27→22:22)
[2021-12-19] MEDS: ibuprofen 200mg tablet PO PRN (11:39)
[2021-12-19] MEDS: ketorolac trometh. 30mg/ml inj. IV PRN (12:26)
--- NOTE | 2021-12-19 13:50 | NUR ---
Reassessment: Pt continues eating well on regular diet with mostly 100% PO intake meeting estimated nutrient needs. [facility] 12/18, with routine bowel care available though held at times d/t not being needed or patient refusing. No nutrition intervention implemented at this time. Will continue to follow. Recommendations: 1. Continue regular diet 2. Stanislaw shake BIDBD for wound healing; pending MD verification in EMR 3. Routine Thiamine, Folic acid, and MVI supplementation for EtOH hx if MD agreeable 4. Routine bowel care 5. Scaled wt this admit; subsequent weekly wts Addendum: 12/19/21 at [address] Amended: Links added.
[2021-12-19 18:00] VITALS: BP 116/69
--- NOTE | 2021-12-19 18:56 | NUR ---
Problems reprioritized. Patient report given, questions answered & plan of care reviewed with SARAN Harris.
[2021-12-19] MEDS: prazosin 1mg capsule PO SCH (20:46)
[2021-12-19] MEDS: traZODone 150mg tablet PO SCH (20:47)
[2021-12-19 22:00] VITALS: BP 103/73
[2021-12-20] MEDS: RIFAMPIN IV SCH ×3 (00:07→16:00)
[2021-12-20] MEDS: NORMAL SALINE IV SCH ×3 (00:07→16:00)
[2021-12-20] MEDS: gabapentin 400mg capsule PO SCH ×3 (00:07→16:00)
[2021-12-20 05:58] LABS: BASOPHILS # (AUTO) 0.1 X10'3 (0-0.2); BASOPHILS % (AUTO) 0.9 % (0-1); EOSINOPHILS # (AUTO) 0.1 X10'3 (0-0.9); EOSINOPHILS % (AUTO) 1.3 % (0-6); HEMATOCRIT 29.1 % (42.0-52.0); HEMOGLOBIN 9.8 g/dl (14.0-17.9); LYMPHOCYTES # (AUTO) 1.6 X10'3 (1.1-4.8); LYMPHOCYTES % (AUTO) 17.4 % (21-51); MEAN CORPUSCULAR HEMOGLOBIN 30.1 PG (27.0-31.0); MEAN CORPUSCULAR HGB CONC 33.5 g/dL (33.0-36.5); MEAN CORPUSCULAR VOLUME 89.7 FL (78-98); MEAN PLATELET VOLUME 5.7 FL (7.4-10.4); MONOCYTES # (AUTO) 0.7 X10'3 (0-0.9); MONOCYTES % (AUTO) 7.2 % (2-12); NEUTROPHILS # (AUTO) 6.8 X10'3 (1.8-7.7); NEUTROPHILS % (AUTO) 73.2 % (42-75); PLATELET COUNT 847 X10'3 (140-440); RED BLOOD COUNT 3.25 X10'6 (4.70-6.10); RED CELL DISTRIBUTION WIDTH 14.8 % (11.5-14.5); WHITE BLOOD COUNT 9.3 X10'3 (4.5-11.0)
[2021-12-20 06:00] VITALS: BP 106/58
[2021-12-20 06:13] LABS: ALANINE AMINOTRANSFERASE 20 U/L (12-78); ALBUMIN 1.7 G/DL (3.4-5.0); ALBUMIN/GLOBULIN RATIO 0.3 (1.1-1.5); ALKALINE PHOSPHATASE 114 IU/L (46-116); ANION GAP 8 (8-16); ASPARTATE AMINO TRANSFERASE 15 U/L (10-37); BILIRUBIN,TOTAL 0.3 MG/DL (0.1-1.0); BLOOD UREA NITROGEN 26 MG/DL (7-18); BUN/CREATININE RATIO 33.8 (5.4-32.0); C-REACTIVE PROTEIN 1.75 MG/DL (0.0-0.5); CALCIUM 9.1 MG/DL (8.5-10.1); CHLORIDE 99 MMOL/L (99-107); CREATININE 0.77 MG/DL (0.60-1.10); GLUCOSE 97 MG/DL (70-104); MAGNESIUM 2.1 MG/DL (1.5-2.4); PHOSPHORUS 5.7 MG/DL (2.3-4.5); POTASSIUM 4.7 MMOL/L (3.5-5.1); SODIUM 133 MMOL/L (135-145); TOTAL CARBON DIOXIDE 26.4 MMOL/L (24-32); TOTAL PROTEIN 8.1 G/DL (6.4-8.2); eGFR > 90 ML/MIN
--- NOTE | 2021-12-20 06:49 | NUR ---
Patient in room ORTHO 4008. I have received report from SARAN Harris and had the opportunity to ask questions and assume patient care.
[2021-12-20] MEDS: naltrexone 50mg tablet PO SCH (08:00)
[2021-12-20] MEDS: K and/or MAG REPLACEMENT MC SCH (08:00)
[2021-12-20] MEDS: docusate sod 100mg capsule PO SCH (08:00)
[2021-12-20 08:02] LABS: PLATELET ESTIMATE INCREASED; TOTAL CELLS COUNTED 100
[2021-12-20] MEDS: buPROPion SR 150mg tablet PO SCH (08:25)
[2021-12-20] MEDS: pantoprazole 40mg Tablet.DR PO SCH (08:25)
[2021-12-20] MEDS: ESCITALOPRAM OXALATE 5 MG TABLET PO SCH (08:26)
[2021-12-20] MEDS: heparin, porcine 5000 units/ml vial SQ SCH (08:27)
[2021-12-20] MEDS: nystatin 500,000 unit/5ML UD oral suspension PO SCH ×2 (08:27→13:31)
[2021-12-20] MEDS: vancomycin/NS 1 GM ADD-VANTAGE 250 ML IV SCH (11:57)
--- NOTE | 2021-12-20 12:30 | NUR ---
Patient will get discharged today. Paged PICC nurse to put a PICC line in prior to departure.
--- NOTE | 2021-12-20 12:42 | NUR ---
PRESSURE ULCER EDUCATION: DEFINITION: A pressure ulcer is an area of skin that breaks down when you stay in one position too long. The constant pressure against the skin reduces the blood flow to that area and the affected tissue dies. CAUSES: "Being bedridden or in a wheelchair "Fragile skin "Having a chronic condition, such as diabetes or vascular disease "Inability to move certain parts of your body without assistance "Older age "Incontinence of urine or stool SYMPTOMS: "A reddened area that DOES NOT turn white when pressed on - this can be the beginning of a pressure ulcer "A blister, deep sore or a crater - these can be advanced pressure ulcers FIRST AID: "Relieve the pressure on this area "Keep the area clean and dry "Call your primary doctor if you see any of the above symptoms "DO NOT massage the area "DO NOT use a donut shaped or ring shaped pillow- these actually interfere with the blood flow and cause complications PREVENTION: "Check for pressure ulcers everyday "Change position at least every two hours to relieve pressure "Use items that help relieve pressure- pillows, sheepskin, foam padding, and powders. "Keep skin clean and dry "Eat healthy well balanced meals "Exercise daily IF YOU SEE ANY OF THESE SYMPTOMS WHILE IN THE HOSPITAL - TELL YOUR NURSE IMMEDIATELY. IF YOU SEE ANY OF THESE SYMPTOMS WHILE AT HOME OR HAVE ANY QUESTIONS OR CONCERNS ABOUT PRESSURE ULCERS - CALL YOUR PRIMARY DOCTOR IMMEDIATELY. Addendum: 12/20/21 at 1242 by Gaby Charlton LVN Amended: Links added.
[2021-12-20] MEDS: LORazepam 1 MG tablet PO PRN (13:31)
[2021-12-20] MEDS: ketorolac trometh. 30mg/ml inj. IV PRN (13:31)
--- NOTE | 2021-12-20 15:24 | NUR ---
report given to Keyla NOONAN at , ETA to leave it 1600, primary nurse aware
--- NOTE | 2021-12-20 16:57 | NUR ---
Patient left around [address] [facility] personnel going to [facility]. PICC line and PIV left in place. Report provided to [facility] personnel. Paperwork was sent with [facility] personnel for the receiving facility.
[2021-12-20] MEDS ORDERED: VANCOMYCIN LEVEL IV ONE (22:30)
== END 2021-12-20 16:40 | DRG 710 ==
LOC: ER 21:58 → ED HOLD 12-10 04:38 → ORTHO 4S 12-10 14:37
PROVIDERS: ADMIT Internal Medicine; ATTEND Family Medicine
PROC: 0JBQ0ZZ Excision of Right Foot Subcutaneous Tissue and Fascia, Open Approach (ICD-10-PCS; 2021-12-10)
PROC: 3E0T3BZ Introduction of Anesthetic Agent into Peripheral Nerves and Plexi, Percutaneous Approach (ICD-10-PCS; 2021-12-12)
PROC: 3E0T33Z Introduction of Anti-inflammatory into Peripheral Nerves and Plexi, Percutaneous Approach (ICD-10-PCS; 2021-12-12)
PROC: 0Y6H0Z1 Detachment at Right Lower Leg, High, Open Approach (ICD-10-PCS; principal; 2021-12-12 15:52)
PROC: B32T1ZZ Computerized Tomography (CT Scan) of Left Pulmonary Artery using Low Osmolar Contrast (ICD-10-PCS; 2021-12-14)
PROC: B3201ZZ Computerized Tomography (CT Scan) of Thoracic Aorta using Low Osmolar Contrast (ICD-10-PCS; 2021-12-14)
PROC: B32S1ZZ Computerized Tomography (CT Scan) of Right Pulmonary Artery using Low Osmolar Contrast (ICD-10-PCS; 2021-12-14)
PROC: 02HV33Z Insertion of Infusion Device into Superior Vena Cava, Percutaneous Approach (ICD-10-PCS; 2021-12-20)
PROC: B548ZZA Ultrasonography of Superior Vena Cava, Guidance (ICD-10-PCS; 2021-12-20)
DX: A41.02 Sepsis due to Methicillin resistant Staphylococcus aureus (principal); I26.90 Septic pulmonary embolism without acute cor pulmonale; I33.0 Acute and subacute infective endocarditis; E46 Unspecified protein-calorie malnutrition; B37.0 Candidal stomatitis; M00.9 Pyogenic arthritis, unspecified; M60.07 Infective myositis, ankle, foot and toes; I96 Gangrene, not elsewhere classified; J90 Pleural effusion, not elsewhere classified; K92.2 Gastrointestinal hemorrhage, unspecified; Z20.822 Contact with and (suspected) exposure to COVID-19; D64.9 Anemia, unspecified; Z96.652 Presence of left artificial knee joint; R94.31 Abnormal electrocardiogram [ECG] [EKG]; Z60.2 Problems related to living alone; L03.115 Cellulitis of right lower limb; F12.90 Cannabis use, unspecified, uncomplicated; F15.10 Other stimulant abuse, uncomplicated; L02.415 Cutaneous abscess of right lower limb; G89.29 Other chronic pain; M25.511 Pain in right shoulder; E87.6 Hypokalemia; F41.0 Panic disorder [episodic paroxysmal anxiety]; I10 Essential (primary) hypertension; M86.8X7 Other osteomyelitis, ankle and foot; Z59.00 Homelessness unspecified; Z88.1 Allergy status to other antibiotic agents; Z68.21 Body mass index [BMI] 21.0-21.9, adult; Z88.5 Allergy status to narcotic agent; Z79.899 Other long term (current) drug therapy; Z86.14 Personal history of Methicillin resistant Staphylococcus aureus infection; Z71.51 Drug abuse counseling and surveillance of drug abuser
CPT/HCPCS: 36415; 36573; 71045; 71275; 73610; 80053; 80074; 80202; 80305; 82948; 83605; 83735; 83880; 84100; 84132; 84145; 84484; 85007; 85025; 85610; 85730; 86140; 86703; 87040; 87070; 87075; 87077; 87186; 87635; 93005; 93306; 93971; 96361; 96365; 96367; 96372; 96375; 97110; 97116; 97162; 97530; 97542; 99285; A4618; A6222; A6446; A6449; A7000; C1751; C9113; G0378; J0131; J0692; J1100; J1170; J1644; J1885; J2175; J2250; J2405; J2543; J2704; J2795; J3010; J3370; J3475; J3480; J3490; J7030; Q9967; S0020

== ENCOUNTER 2022-08-01 11:20 | Emergency (ER) | payer MEDICAID ==
[~2022-08-01] VITALS: Ht 172.7 cm; Wt 70.5 kg
[~2022-08-01 11:20] MED LIST changes: -AZI25OT PO; +BUPR300T86 PO; +ESCI-8 PO; +ESOM40CA54 PO; +FLUT16SP26 BOTHNARES; +IBUP-1985 PO; -LACT1CAP26 PO; +LORA-268 PO; -MAGN400C PO; -MULT-955 PO; +NALT50TA PO; -NAPR-56 PO; -PANT40TA54 PO; -POTA10TA37 PO; -PRAV20TA4 PO; +PRAZ1CAP5 PO; -TRAZ-256 PO; +TRAZ150T78 PO; -folic acid tablet PO; -thiamine tablet PO
[2022-08-01 13:32] LABS: BASOPHILS % (AUTO) 0.6 % (0-1); EOSINOPHILS # (AUTO) 0.3 X10'3 (0-0.9); EOSINOPHILS % (AUTO) 4.1 % (0-6); HEMATOCRIT 41.3 % (42.0-52.0); LYMPHOCYTES # (AUTO) 1.6 X10'3 (1.1-4.8); LYMPHOCYTES % (AUTO) 20.4 % (21-51); MEAN CORPUSCULAR HGB CONC 33.9 g/dL (33.0-36.5); MEAN CORPUSCULAR VOLUME 88.6 FL (78-98); MEAN PLATELET VOLUME 6.8 FL (7.4-10.4); MONOCYTES # (AUTO) 0.7 X10'3 (0-0.9); MONOCYTES % (AUTO) 8.4 % (2-12); NEUTROPHILS # (AUTO) 5.4 X10'3 (1.8-7.7); NEUTROPHILS % (AUTO) 66.5 % (42-75); PLATELET COUNT 333 X10'3 (140-440); RED BLOOD COUNT 4.66 X10'6 (4.70-6.10); RED CELL DISTRIBUTION WIDTH 14.5 % (11.5-14.5); WHITE BLOOD COUNT 8.1 X10'3 (4.5-11.0)
[2022-08-01 13:48] LABS: ALANINE AMINOTRANSFERASE 24 U/L (12-78); ALBUMIN 3.5 G/DL (3.4-5.0); ALBUMIN/GLOBULIN RATIO 0.9 (1.1-1.5); ALKALINE PHOSPHATASE 76 IU/L (46-116); ANION GAP 14 (8-16); ASPARTATE AMINO TRANSFERASE 37 U/L (10-37); BILIRUBIN,TOTAL 0.7 MG/DL (0.1-1.0); BLOOD UREA NITROGEN 11 MG/DL (7-18); BUN/CREATININE RATIO 14.9 (5.4-32.0); CHLORIDE 102 MMOL/L (99-107); CREATININE 0.74 MG/DL (0.60-1.10); GLUCOSE 95 MG/DL (70-104); POTASSIUM 3.3 MMOL/L (3.5-5.1); SODIUM 137 MMOL/L (135-145); TOTAL CARBON DIOXIDE 21.5 MMOL/L (24-32); TOTAL PROTEIN 7.4 G/DL (6.4-8.2); eGFR > 90 ML/MIN
--- NOTE | 2022-08-01 13:50 | NUR ---
GENERAL ASSESSMENT DONE. CHARGE NURSE ARTURO NOONAN AWARE.
[2022-08-01] MEDS ORDERED: POTASSIUM BICARB 20meq eff tab 20 MEQ TABLET.EFF PO STA (14:07)
[2022-08-01] MEDS ORDERED: dexamethasone sod phosphate 10mg/ml inj PO STA (14:07)
[2022-08-01] MEDS ORDERED: cephalexin 500mg capsule PO ONE (14:10)
[2022-08-01] MEDS ORDERED: CEPH500C82 PO (15:10)
[2022-08-01] MEDS ORDERED: ALBU8HFA PO (15:10)
[2022-08-01 15:20] VITALS: BP 127/86
== END 2022-08-01 15:36 | disposition home or self-care (01) ==
LOC: ER 11:21
DX: J40 Bronchitis, not specified as acute or chronic (principal); F20.9 Schizophrenia, unspecified; E87.6 Hypokalemia; M25.561 Pain in right knee; I10 Essential (primary) hypertension; G89.29 Other chronic pain; F31.9 Bipolar disorder, unspecified; F12.10 Cannabis abuse, uncomplicated; F15.10 Other stimulant abuse, uncomplicated; Z86.14 Personal history of Methicillin resistant Staphylococcus aureus infection; Z88.5 Allergy status to narcotic agent; Z88.1 Allergy status to other antibiotic agents; Z79.899 Other long term (current) drug therapy; Z79.1 Long term (current) use of non-steroidal anti-inflammatories (NSAID); Z79.2 Long term (current) use of antibiotics
CPT/HCPCS: 36415; 71045; 73564; 80053; 85025; 99284; J1100

== ENCOUNTER 2022-08-03 01:35 | Emergency (ER) | payer MEDICAID ==
[~2022-08-03] VITALS: Ht 172.7 cm; Wt 70.3 kg
[~2022-08-03 01:35] MED LIST changes: +ALBU8HFA PO; +CEPH500C82 PO
[2022-08-03 02:43] VITALS: BP 145/67
[2022-08-03] MEDS ORDERED: CEPH-585 PO (03:09)
== END 2022-08-03 03:31 | disposition home or self-care (01) ==
LOC: ER 01:35
DX: S80.221A Blister (nonthermal), right knee, initial encounter (principal); I10 Essential (primary) hypertension; G89.29 Other chronic pain; F41.9 Anxiety disorder, unspecified; F12.10 Cannabis abuse, uncomplicated; F15.10 Other stimulant abuse, uncomplicated; Z88.5 Allergy status to narcotic agent; Z79.899 Other long term (current) drug therapy; Z88.1 Allergy status to other antibiotic agents; Z79.1 Long term (current) use of non-steroidal anti-inflammatories (NSAID); Z79.2 Long term (current) use of antibiotics; X58.XXXA Exposure to other specified factors, initial encounter; Y93.89 Activity, other specified; Y92.89 Other specified places as the place of occurrence of the external cause; Y99.8 Other external cause status
CPT/HCPCS: 99283; A6223; A6449

== ENCOUNTER 2022-08-08 14:09 | Emergency (ER) | payer MEDICAID ==
[~2022-08-08] VITALS: Ht 167.6 cm; Wt 70.3 kg
[~2022-08-08 14:09] MED LIST changes: +CEPH-585 PO
[2022-08-08 14:37] VITALS: BP 138/80
[2022-08-08 21:28] LABS: BASOPHILS % (AUTO) 0.5 % (0-1); EOSINOPHILS # (AUTO) 0.4 X10'3 (0-0.9); EOSINOPHILS % (AUTO) 4.2 % (0-6); HEMATOCRIT 41.7 % (42.0-52.0); HEMOGLOBIN 14.3 g/dl (14.0-17.9); LYMPHOCYTES # (AUTO) 2.1 X10'3 (1.1-4.8); LYMPHOCYTES % (AUTO) 23.2 % (21-51); MEAN CORPUSCULAR HEMOGLOBIN 30.5 PG (27.0-31.0); MEAN CORPUSCULAR HGB CONC 34.3 g/dL (33.0-36.5); MEAN CORPUSCULAR VOLUME 89.2 FL (78-98); MEAN PLATELET VOLUME 6.9 FL (7.4-10.4); MONOCYTES # (AUTO) 0.7 X10'3 (0-0.9); MONOCYTES % (AUTO) 7.3 % (2-12); NEUTROPHILS % (AUTO) 64.8 % (42-75); PLATELET COUNT 319 X10'3 (140-440); RED BLOOD COUNT 4.67 X10'6 (4.70-6.10); RED CELL DISTRIBUTION WIDTH 14.9 % (11.5-14.5); WHITE BLOOD COUNT 9.2 X10'3 (4.5-11.0)
[2022-08-08] MEDS ORDERED: SULF1TAB45 PO (21:47)
== END 2022-08-08 22:01 | disposition home or self-care (01) ==
LOC: ER 14:10
DX: H10.9 Unspecified conjunctivitis (principal); L08.89 Other specified local infections of the skin and subcutaneous tissue; I10 Essential (primary) hypertension; G89.29 Other chronic pain; F17.200 Nicotine dependence, unspecified, uncomplicated; F12.90 Cannabis use, unspecified, uncomplicated; F15.90 Other stimulant use, unspecified, uncomplicated; Z98.890 Other specified postprocedural states; Z72.89 Other problems related to lifestyle; Z60.2 Problems related to living alone; Z88.5 Allergy status to narcotic agent; Z88.8 Allergy status to other drugs, medicaments and biological substances; Z79.899 Other long term (current) drug therapy
CPT/HCPCS: 36415; 85025; 99283

== ENCOUNTER 2022-08-10 05:29 | Emergency (ER) | payer MEDICAID ==
[~2022-08-10] VITALS: Ht 172.7 cm; Wt 70.5 kg
[~2022-08-10 05:29] MED LIST changes: -CEPH500C82 PO; +SULF1TAB45 PO
--- NOTE | 2022-08-10 06:34 | NUR ---
patient asleep, awaiting to be seen.
[2022-08-10 10:57] LABS: BASOPHILS % (AUTO) 0.4 % (0-1); EOSINOPHILS # (AUTO) 0.3 X10'3 (0-0.9); EOSINOPHILS % (AUTO) 3.4 % (0-6); HEMATOCRIT 42.5 % (42.0-52.0); HEMOGLOBIN 14.4 g/dl (14.0-17.9); LYMPHOCYTES # (AUTO) 1.5 X10'3 (1.1-4.8); LYMPHOCYTES % (AUTO) 15.4 % (21-51); MEAN CORPUSCULAR HEMOGLOBIN 30.2 PG (27.0-31.0); MEAN CORPUSCULAR HGB CONC 33.8 g/dL (33.0-36.5); MEAN CORPUSCULAR VOLUME 89.1 FL (78-98); MONOCYTES # (AUTO) 0.7 X10'3 (0-0.9); MONOCYTES % (AUTO) 7.2 % (2-12); NEUTROPHILS # (AUTO) 7.2 X10'3 (1.8-7.7); NEUTROPHILS % (AUTO) 73.6 % (42-75); PLATELET COUNT 296 X10'3 (140-440); RED BLOOD COUNT 4.77 X10'6 (4.70-6.10); RED CELL DISTRIBUTION WIDTH 15.2 % (11.5-14.5); WHITE BLOOD COUNT 9.8 X10'3 (4.5-11.0)
[2022-08-10 10:57] LABS: CLARITY,URINE CLEAR (Clear); COLOR,URINE YELLOW (Yellow); GLUCOSE, URINE NEGATIVE (Neg); KETONES,URINE NEGATIVE (Neg); LEUKOCYTE ESTERASE ,URINE NEGATIVE (Neg); NITRITES, URINE NEGATIVE (Neg); OCCULT BLOOD,URINE NEGATIVE (Neg); PH,URINE 6.5 (4.8-8.0); PROTEIN,URINE NEGATIVE (Neg); UROBILINOGEN,URINE 0.2 E.U/dL (0.2-1.0)
[2022-08-10 10:58] LABS: UA COLLECTION TYPE CLN CATCH MIDSTREAM
[2022-08-10 11:00] LABS: ALANINE AMINOTRANSFERASE 23 U/L (12-78); ALBUMIN 3.2 G/DL (3.4-5.0); ALBUMIN/GLOBULIN RATIO 0.9 (1.1-1.5); ALKALINE PHOSPHATASE 74 IU/L (46-116); ANION GAP 7 (8-16); ASPARTATE AMINO TRANSFERASE 21 U/L (10-37); BILIRUBIN,TOTAL 0.5 MG/DL (0.1-1.0); BLOOD UREA NITROGEN 14 MG/DL (7-18); BUN/CREATININE RATIO 15.7 (5.4-32.0); CALCIUM 8.2 MG/DL (8.5-10.1); CHLORIDE 105 MMOL/L (99-107); CREATININE 0.89 MG/DL (0.60-1.10); GLUCOSE 98 MG/DL (70-104); SODIUM 138 MMOL/L (135-145); TOTAL CARBON DIOXIDE 26.3 MMOL/L (24-32); TOTAL PROTEIN 6.8 G/DL (6.4-8.2); eGFR > 90 ML/MIN
[2022-08-10 11:02] LABS: ETHANOL < 0.010 GM/DL (0.0-0.010)
[2022-08-10 11:06] LABS: URINE AMPHETAMINE SCREEN POSITIVE (Neg); URINE BARBITUATE SCREEN NEGATIVE (Neg); URINE BENZODIAZEPINES SCREEN NEGATIVE (Neg); URINE CANNABINOID SCREEN POSITIVE (Neg); URINE COCAINE SCREEN NEGATIVE (Neg); URINE METHADONE SCREEN NEGATIVE (Neg); URINE OPIATE SCREEN NEGATIVE (Neg); URINE PHENCYCLIDINE SCREEN NEGATIVE (Neg)
--- NOTE | 2022-08-10 14:42 | NUR ---
Finished lunch,sleeping at this time.
--- NOTE | 2022-08-10 17:35 | NUR ---
Received report from Suze.
--- NOTE | 2022-08-10 17:48 | NUR ---
Received patient from main ED to OF bed #20. Pt was transported via personal WC. Pt has left BKA. Pt appears calm/cooperative.
[2022-08-10] MEDS ORDERED: SULF1TAB45 PO (18:59)
[2022-08-10] MEDS: LORazepam 0.5 MG tablet PO PRN (19:32)
[2022-08-10] MEDS: sulfamethoxazole/trimethoprim DS (800/160mg) tablet PO SCH (19:32)
[2022-08-10] MEDS: ibuprofen 200mg tablet PO PRN (19:32)
[2022-08-10] MEDS: traZODone 150mg tablet PO SCH (20:32)
--- NOTE | 2022-08-10 23:25 | NUR ---
Pt awake at start of shift, ate 100% of meal. Cooperative with admit assessment per pt he hears voices that don't directly tell him to commit suicide but just keep telling him how hopeless his situation is. [facility] but no one would tell him why. He is homeless and has a wound on his Right BKA stump that he feels he is not getting adaquate medical care for. His conversation is disorganized at times. He made some paranoid delusional statements that people were out to get him. He believes someone at the mission filed his taxes without his permission. [place] He took his HS meds and has been sleeping since.
--- NOTE | 2022-08-11 01:10 | NUR ---
Sleeping resp even and unlabored.
--- NOTE | 2022-08-11 04:47 | NUR ---
Awakened for VS went immediately back to sleep.
[2022-08-11] MEDS: fluticasone nasal spray 16GM bottle NS SCH (08:00)
--- NOTE | 2022-08-11 08:02 | NUR ---
Patient up to the bathroom using w/c for mobility without assistance at 0730. Patient returned to bed and fell back asleep.
[2022-08-11] MEDS: ESCITALOPRAM OXALATE 5 MG TABLET PO SCH (08:22)
[2022-08-11] MEDS: sulfamethoxazole/trimethoprim DS (800/160mg) tablet PO SCH ×2 (08:23→19:23)
[2022-08-11] MEDS: pantoprazole 40mg Tablet.DR PO SCH (08:23)
[2022-08-11] MEDS: LORazepam 0.5 MG tablet PO PRN ×2 (08:25→19:24)
--- NOTE | 2022-08-11 08:46 | NUR ---
Patient ate breakfast. Durga from [facility] at bedside to interview the patient at this time. Patient reports he did not follow through on his appointment with [facility] recently and did say that he can no longer go to the mission but he does not understand why. Patient gave Durga his mother's phone number to see if he can help her safety plan with her son, and she replied no as there was a recent event that occurred in their home in which he is no longer allowed. Will continue to monitor. Patient received Ativan per his request as he now says he is feeling very anxious at this time.
--- NOTE | 2022-08-11 11:35 | NUR ---
Patient sleeping in bed. Appears comfortable at this time.
--- NOTE | 2022-08-11 14:37 | NUR ---
Patient still sleeping since after lunch. Will continue to monitor.
--- NOTE | 2022-08-11 17:41 | NUR ---
Patient sleeping in bed all afternoon. Patient up to bathroom at this time and voided. Patient self propels w/c secondary to Right BKA.
--- NOTE | 2022-08-11 18:25 | NUR ---
Pt sitting in bed talking on the phone.
[2022-08-11] MEDS: ibuprofen 200mg tablet PO PRN (19:24)
--- NOTE | 2022-08-11 20:31 | NUR ---
Pt spent time talking with the patient in the next bed regarding music he likes, Pt states he doesnt know if he feels suicidal, reports feeling anxiety 12/04 stating his sister just had a baby and he is feeling overwhelmed about thinking how to help his family. Pt given prn ativan for anxiety and prn ibuprofen for leg pain 03/06.
[2022-08-11] MEDS: traZODone 150mg tablet PO SCH (20:34)
--- NOTE | 2022-08-11 22:56 | NUR ---
Pt is laying on his back appears to be sleeping. RR even and unlabored.
--- NOTE | 2022-08-12 01:45 | NUR ---
pt is laying on his right side in bed asleep. RR 16
--- NOTE | 2022-08-12 04:06 | NUR ---
Pt laying on his left side asleep RR16
--- NOTE | 2022-08-12 05:32 | NUR ---
Pt laying on his right side asleep rr even and unlabored.
[2022-08-12 05:42] VITALS: BP 126/72
--- NOTE | 2022-08-12 06:30 | NUR ---
Received patient asleep on his right side, noted rise and fall of chest. No distress noted.
[2022-08-12] MEDS: fluticasone nasal spray 16GM bottle NS SCH (08:00)
[2022-08-12] MEDS: ESCITALOPRAM OXALATE 5 MG TABLET PO SCH (08:49)
[2022-08-12] MEDS: pantoprazole 40mg Tablet.DR PO SCH (08:49)
[2022-08-12] MEDS: sulfamethoxazole/trimethoprim DS (800/160mg) tablet PO SCH (08:49)
--- NOTE | 2022-08-12 08:59 | NUR ---
Pt awake eating breakfast, medications adminsitered, 1:1 completeed. Pt is irritable/agitated stating, "I wont get any help here, just discharge me, yes im suicidal, I have nowhere to go, nothing to eat, no clothes and the mission wont take me in and I dont know why." Nurse reminided pt. the substance abuse advocator will be here to dicuss options with him and we are attempting to help him. He goes from saying he is suicidal to not, he appears frustrated and is concernced about being discharged with nowhere to go. He currently has no plan.
--- NOTE | 2022-08-12 11:00 | NUR ---
Pt resting in bed on his left side, noted rise and fall of chest. No distress noted.
--- NOTE | 2022-08-12 12:32 | NUR ---
Pt eating lunch, no distress noted.
--- NOTE | 2022-08-12 14:20 | NUR ---
Pt sitting up in his bed conversing with his roomate.
--- NOTE | 2022-08-12 15:16 | NUR ---
Met with patient in regards to substance use and to see if patient was interested in resources for treatment options. Patient said he is already working with someone for treatment and declined resources from me.
--- NOTE | 2022-08-12 15:30 | NUR ---
Pt yelling on the telephone. Pt encouraged to please keep his volume down. Pt was receptive.
== END 2022-08-12 16:17 | disposition still patient (30) ==
LOC: ER 05:29
DX: R45.851 Suicidal ideations (principal); Z20.822 Contact with and (suspected) exposure to COVID-19; F32.A Depression, unspecified; I10 Essential (primary) hypertension; G89.29 Other chronic pain; F41.9 Anxiety disorder, unspecified; Z86.14 Personal history of Methicillin resistant Staphylococcus aureus infection; F12.10 Cannabis abuse, uncomplicated; F15.10 Other stimulant abuse, uncomplicated; Z88.1 Allergy status to other antibiotic agents; Z88.5 Allergy status to narcotic agent; Z79.899 Other long term (current) drug therapy; Z79.1 Long term (current) use of non-steroidal anti-inflammatories (NSAID)
CPT/HCPCS: 36415; 80053; 80305; 80320; 81003; 85025; 87811; 99285